=== PATIENT | female | born 1985 | race African-American/Black ===

== ENCOUNTER 2021-04-12 21:43 | Emergency (ER) | payer SELFPAY ==
--- NOTE | ~2021-04-12 | XR_ITS ---
EXAMINATION: XR foot LT min 3V EXAM DATE: 04/12/2021 22:12 INDICATION: Edema to great toe, cut cuticle, laceration to severe. TECHNIQUE: Left foot dorsoplantar, lateral and oblique projections obtained and reviewed. There is n o prior study for comparison. FINDINGS: Left metatarsal bones unremarkable. There are no bony erosions identified. There are n o acute fractures or dislocations identified. There is no subcutaneous gas. The soft tissue is unre markable. There are no radiopaque foreign bodies. IMPRESSION: No acute osseous findings. Reviewed, dictated and finalized at location A. IMPRESSION: No acute osseous findings.
[2021-04-12 21:47] VITALS: BP 149/96; PULSE 89; RESP 18; TEMP 37; O2SAT 100
[2021-04-12 22:05] LABS: Basophils Percent Auto 0.3 % (0.2-1.2); Eosinophils Percent Auto 0.3 % (0-4.4); Hematocrit 37.8 % (37.0-47.0); Hemoglobin 11.6 g/dL (12.0-15.0); Immature Granulocyte Absolute 0.02 K/mm3 (0.00-0.031); Immature Granulocyte Percent A 0.2 % (0-0.5); Lymphocytes Absolute Auto 1.96 K/mm3 (0.9-3.2); Lymphocytes Percent Auto 22.8 % (18.3-44.2); Mean Corpuscular HGB Conc 30.7 g/dl (32-36); Mean Corpuscular Hemoglobin 20.6 pg (26-34); Mean Corpuscular Volume 67.3 fl (80-100); Mean Platelet Volume 10.5 fl (7.4-10.4); Monocytes Absolute Auto 0.5 K/mm3 (0.1-0.6); Monocytes Percent Auto 5.7 % (2.6-8.5); Neutrophils Absolute Auto 6.1 K/mm3 (1.3-6.7); Neutrophils Percent Auto 70.7 % (45.5-73.1); Platelet Count Result 290 k/mm3 (150-375); Red Blood Count 5.62 M/mm3 (4.2-5.4); Red Cell Distribution Width 15.2 % (11.5-14.5); White Blood Count 8.6 K/mm3 (4.5-10.0)
[2021-04-12 22:16] LABS: Alanine Aminotransferase 18 U/L (4-35); Albumin Level 4.4 g/dL (3.5-5.1); Alkaline Phosphatase 53 U/L (38-126); Anion Gap 3 mmol/L (8-16); Aspartate Amino Transferase 32 U/L (14-36); Bilirubin,Total 0.2 mg/dL (0.2-1.3); Blood Urea Nitrogen 8 mg/dL (7-17); Carbon Dioxide 33 mmol/L (22-30); Chloride 103 mmol/L (98-107); Estimated CRCL calculation 126 ml/min; Estimated Glomerular Filt Rate > 60; Glucose 115 mg/dL (65-105); Potassium 3.9 mmol/L (3.4-5.0); Sodium 139 mmol/L (137-145)
--- NOTE | 2021-04-12 23:45 | ED.EXTPRO ---
HPI - Extremity Problem General Chief complaint: Extremity Problem,Nontraumatic Stated complaint: pain to left great toe Time Seen by Provider: 04/12/21 23:26 Source: patient Mode of arrival: ambulatory Limitations: no limitations History of Present Illness HPI Narrative: This is a 35-year-old female that presents the emergency department for pain to the left great toe present x2 days. Noticed redness and swelling to the area. Also has had abnormal drainage from the area. Reports she did receive a pedicure couple weeks ago. Denies fever. Related Data Allergies Allergy/AdvReac Type Severity Reaction Status Date / Time Penicillins Allergy Unknown Verified 08/30/16 11:13 sulfamethoxazole Allergy Unknown Verified 08/30/16 11:55 trimethoprim Allergy Unknown Verified 08/30/16 11:55 SHELLFISH Allergy Unknown Uncoded 08/30/16 11:13 Review of Systems Review of Systems: Narrative: CONSTITUTIONAL: Denies fever SKIN: Reports redness and swelling All systems reviewed & are unremarkable except as noted in HPI and below PMFSH Past Medical History Medical History (Updated 04/13/21 @ 01:43 by Susan Jovel PA-C) No active medical problems Social History Social History (Updated 04/12/21 @ 23:46 by Susan Jovel PA-C) Substance use: never Exam Narrative: Exam Narrative: GENERAL: Well-appearing, well-nourished, and in no acute distress. HEAD: Normocephalic, atraumatic. EYES: EOMI. EXTREMITIES: Normal range of motion. Mild edema and redness to the left great toe lateral nail fold, tender to palpation in the area SKIN: Warm, dry, no rash. NEURO: No focal deficits. Alert and oriented x3. PSYCH: Normal mood and affect Course Vital Signs Vital signs: Vital Signs Temperature 98.6 F 04/12/21 21:47 Pulse Rate 89 04/12/21 21:47 Respiratory Rate 18 04/12/21 21:47 Blood Pressure 149/96 H 04/12/21 21:47 Pulse Oximetry 100 04/12/21 21:47 Temperature 98.6 F 04/12/21 21:47 Pulse Rate 82 04/13/21 00:04 Respiratory Rate 17 04/13/21 00:04 Blood Pressure 170/90 H 04/13/21 00:04 Pulse Oximetry 100 04/13/21 00:04 MDM - Extremity (Nontraumatic) MDM Narrative Medical decision making narrative: Patient presents the emergency department for left great toe redness and swelling. Exam consistent with paronychia. This was drained in the ED. CBC is without leukocytosis. Patient is afebrile. Left foot x-ray is without acute findings. Patient instructed on warm soapy soaks and will be started on oral antibiotics. She is to follow-up with her primary care doctor. Will also be given podiatry if needed. She was given warnings to return to the ER Lab Data Attestation: I reviewed the patient's lab results. Result diagrams: 04/12/21 21:58 04/12/21 21:58 Labs: Lab Results 04/12/21 04/12/21 Range/Units 21:58 21:58 WBC 8.6 (4.5-10.0) K/mm3 RBC 5.62 H (4.2-5.4) M/mm3 Hgb 11.6 L (12.0-15.0) g/dL Hct 37.8 (37.0-47.0) % MCV 67.3 L (80-100) fl MCH 20.6 L (26-34) pg MCHC 30.7 L (32-36) g/dl RDW 15.2 H (11.5-14.5) % Plt Count 290 (150-375) k/mm3 MPV 10.5 H (7.4-10.4) fl Immature Gran % (Auto) 0.2 (0-0.5) % Neut % (Auto) 70.7 (45.5-73.1) % Lymph % (Auto) 22.8 (18.3-44.2) % [place] % (Auto) 5.7 (2.6-8.5) % Eos % (Auto) 0.3 (0-4.4) % Baso % (Auto) 0.3 (0.2-1.2) % Lymph # (Auto) 1.96 (0.9-3.2) K/mm3 [place] # (Auto) 0.5 (0.1-0.6) K/mm3 Eos # (Auto) 0.0 (0-0.3) K/mm3 Baso # (Auto) 0.0 (0.0-0.1) K/mm3 Abs Immat Gran (auto) 0.02 (0.00-0.031) K/mm3 Absolute Neuts (auto) 6.1 (1.3-6.7) K/mm3 Absolute Nucleated RBC 0.0 (0.0-0.012) K/mm3 Nucleated RBC % 0.0 (0.0-0.2) % Sodium 139 (137-145) mmol/L Potassium 3.9 (3.4-5.0) mmol/L Chloride 103 (98-107) mmol/L Carbon Dioxide 33 H (22-30) mmol/L Anion Gap 3 L (8-16) mmol/L BUN 8 (7-17) mg/dL Creatinine 0.70 (0.7-1.0) m
[2021-04-13 00:04] VITALS: BP 170/90; PULSE 82; RESP 17; O2SAT 100
[2021-04-13 02:01] VITALS: BP 141/81; PULSE 80; RESP 18; O2SAT 97
== END 2021-04-13 02:00 | disposition home or self-care (01) ==
PROVIDERS: Emergency Provider Emergency Medicine; PCP Family Medicine
DX: L03.032 Cellulitis of left toe (principal)
CPT/HCPCS: 36415; 73630; 80053; 85025; 99283

== ENCOUNTER 2023-06-30 03:47 | Emergency (ER) | payer BC, SELFPAY ==
[2023-06-30 03:50] VITALS: BP 153/110; PULSE 92; RESP 17; TEMP 36.2; O2SAT 100
--- NOTE | 2023-06-30 03:58 | PC.NURSE ---
Patient reports she had told a friend that she had thoughts of wanting to hurt herself and her friend called for help. Patient reports she was at work and the police showed up at her work and told her that she had to be taken to the ER and didn't have a choice. Patient denies actively trying to hurt herself and just reports thinking of driving her truck of a bridge tonight. She reports she didn't act on it at all and went to work instead.
--- NOTE | 2023-06-30 04:19 | ED.GENADULT ---
HPI - General Adult General Chief complaint: Psychiatric Symptoms <Matt Carter MD - Last Filed: 06/30/23 05:56> Stated complaint: to talk to someone brought in by PD <Matt Carter MD - Last Filed: 06/30/23 05:56> Time Seen by Provider: 06/30/23 04:15 <Matt Carter MD - Last Filed: 06/30/23 05:56> History of Present Illness HPI narrative: Patient 38-year-old female presents emerged department with chief complaint of suicidal ideation. Patient reports has been under a lot of stress and made some comments to one of her friends that she may drive her vehicle off a bridge. The patient states that at this exact point she is not actively suicidal and reports that her friend called the police and they brought her to the emergency department. <Matt Carter MD - Last Filed: 06/30/23 05:56> Related Data Allergies/adverse reactions: Allergies Allergy/AdvReac Type Severity Reaction Status Date / Time Penicillins Allergy Unknown Rash Verified 06/30/23 03:48 sulfamethoxazole Allergy Unknown Swelling Verified 06/30/23 03:48 of Lip/Tongue/Throat trimethoprim Allergy Unknown Swelling Verified 06/30/23 03:48 of Lip/Tongue/Throat SHELLFISH Allergy Unknown Swelling Uncoded 06/30/23 03:48 of Lip/Tongue/Throat <Matt Carter MD - Last Filed: 06/30/23 05:56> Review of Systems Review of Systems: A 10 system review of systems was completed on the patient and is negative except for what is stated in the HPI. Nursing and ancillary documentation was reviewed. <Matt Carter MD - Last Filed: 06/30/23 05:56> [facility] Past Medical History Medical History: Medical History No active medical problems <Matt Carter MD - Last Filed: 06/30/23 05:56> Social History Social History: Social History Substance use: never Substance use type: does not use <Matt Carter MD - Last Filed: 06/30/23 05:56> Comments History of lupus <Matt Carter MD - Last Filed: 06/30/23 05:56> Exam Narrative: GENERAL: Well-appearing, well-nourished, and in no acute distress. HEAD: Normocephalic, atraumatic. EYES: PERRLA and EOMI. ENT: Nares clear, no rhinorrhea or epistaxis. Mucous membranes moist. NECK: Supple. CHEST: Clear to auscultation. No respiratory distress. HEART: Regular rate and rhythm. No murmur heard. Normal peripheral pulses. ABDOMEN: Soft, nontender, nondistended, normal active bowel sounds. EXTREMITIES: Normal range of motion. No edema. SKIN: Warm, dry, no rash. NEURO: No focal deficits. Alert and oriented x3. PSYCH: Tearful mood and affect <Matt Carter MD - Last Filed: 06/30/23 05:56> Course Vital Signs Vital signs: Vital Signs Temperature 97.2 F L 06/30/23 03:50 Pulse Rate 92 06/30/23 03:50 Respiratory Rate 17 06/30/23 03:50 Blood Pressure 153/110 H 06/30/23 03:50 Pulse Oximetry 100 06/30/23 03:50 Oxygen Delivery Room Air 06/30/23 03:50 Temperature 97.2 F L 06/30/23 03:50 Pulse Rate 92 06/30/23 03:50 Respiratory Rate 17 06/30/23 03:50 Blood Pressure 153/110 H 06/30/23 03:50 Pulse Oximetry 100 06/30/23 03:50 Oxygen Delivery Room Air 06/30/23 03:50 <Matt Carter MD - Last Filed: 06/30/23 05:56> Vital Signs Temperature 97.2 F L 06/30/23 03:50 Pulse Rate 92 06/30/23 03:50 Respiratory Rate 17 06/30/23 03:50 Blood Pressure 153/110 H 06/30/23 03:50 Pulse Oximetry 100 06/30/23 03:50 Oxygen Delivery Room Air 06/30/23 03:50 Temperature 97.2 F L 06/30/23 03:50 Pulse Rate 92 06/30/23 03:50 Respiratory Rate 17 06/30/23 03:50 Blood Pressure 153/110 H 06/30/23 03:50 Pulse Oximetry 100 06/30/23 03:50 Oxygen Delivery Room
[2023-06-30 04:43] LABS: Basophils Percent Auto 0.5 % (0.2-1.2); Eosinophils Absolute Auto 0.1 K/mm3 (0-0.3); Hematocrit 38.9 % (37.0-47.0); Hemoglobin 12.4 g/dL (12.0-15.0); Immature Granulocyte Absolute 0.02 K/mm3 (0.00-0.031); Immature Granulocyte Percent A 0.3 % (0-0.5); Lymphocytes Absolute Auto 1.64 K/mm3 (0.9-3.2); Lymphocytes Percent Auto 27.7 % (18.3-44.2); Mean Corpuscular HGB Conc 31.9 g/dl (32-36); Mean Corpuscular Hemoglobin 20.7 pg (26-34); Mean Corpuscular Volume 65.1 fl (80-100); Mean Platelet Volume 10.6 fl (7.4-10.4); Monocytes Absolute Auto 0.5 K/mm3 (0.1-0.6); Monocytes Percent Auto 8.1 % (2.6-8.5); Neutrophils Absolute Auto 3.7 K/mm3 (1.3-6.7); Neutrophils Percent Auto 62.4 % (45.5-73.1); Platelet Count Result 254 k/mm3 (150-375); Red Blood Count 5.98 M/mm3 (4.2-5.4); Red Cell Distribution Width 16.7 % (11.5-14.5); White Blood Count 5.9 K/mm3 (4.5-10.0)
[2023-06-30 04:57] LABS: Alanine Aminotransferase 30 U/L (6-35); Albumin Level 4.7 g/dL (3.5-5.1); Alkaline Phosphatase 57 U/L (38-126); Anion Gap 10 mmol/L (8-16); Aspartate Amino Transferase 29 U/L (14-36); Bilirubin,Total 0.6 mg/dL (0.2-1.3); Blood Urea Nitrogen 7 mg/dL (7-17); Calcium 8.7 mg/dL (8.4-10.2); Carbon Dioxide 29 mmol/L (22-30); Chloride 98 mmol/L (98-107); Estimated CRCL calculation 113 ml/min; Estimated Glomerular Filt Rate > 60; Glucose 132 mg/dL (65-110); Potassium 2.6 mmol/L (3.4-5.0); Sodium 137 mmol/L (137-145)
[2023-06-30 05:01] LABS: Amphetamine Screen Urine Positive (Negative); Barbiturate Screen Urine Negative (Negative); Benzodiazepines Screen Urine Negative (Negative); Cannabinoid Screen Urine Negative (Negative); Cocaine Screen Urine Negative (Negative); Methadone Screen Urine Negative (Negative); Opiate Screen Urine Negative (Negative); Phencyclidine Screen Urine Negative (Negative)
[2023-06-30 05:04] LABS: Microcytosis 2+ (NORMAL); Platelet Estimate Adequate (Adequate); Schistocytes None Seen (NORMAL)
[2023-06-30 05:05] LABS: Ethanol < 10 mg/dL (<10)
[2023-06-30] MEDS: POTASSIUM CHLORIDE 20 MEQ ER TABLET 40 MEQ PO (05:05)
[2023-06-30 05:07] LABS: Appearance Urine Cloudy (Clear); Bacteria Urine 1+ /hpf; Bilirubin Urine 1+ (Negative); Blood Urine Negative (Negative); Color Urine Dark Yellow (Yellow); Glucose Urine UA Negative (Negative); Ketones Urine 2+ mg/dL (Negative); Leukocyte Esterase Ur Negative LEU/UL (Negative); Need Manual Microscopic Reviewed; Nitrate Urine Negative (Negative); Protein Urine 3+ mg/dL (Negative); Specific Grav Ur 1.029 (1.001-1.035); Squamous Epithelial Cell Urine Many /hpf (Few)
[2023-06-30 05:08] LABS: Add Urine Microscopic? YES
[2023-06-30 05:18] LABS: Influenza A QL RT-PCR Negative (Negative); Influenza B QL RT-PCR Negative (Negative); RSV RNA, RT-PCR Negative (Negative); SARS-CoV-2 RNA PCR Negative (Negative)
[2023-06-30 05:44] LABS: Acetaminophen < 10 ug/mL (10-30); Salicylate < 1.0 mg/dL (2-20)
--- NOTE | 2023-06-30 06:15 | PC.NURSE ---
Per EDP Dr. Carter patient is a moderate risk and no sitter is required.
--- NOTE | 2023-06-30 08:20 | PC.NURSE ---
crisis at bedside
== END 2023-06-30 10:05 | disposition home or self-care (01) ==
PROVIDERS: Emergency Medicine; Emergency Provider Emergency Medicine
DX: R45.851 Suicidal ideations (principal); F32.A Depression, unspecified; E87.6 Hypokalemia; Z20.822 Contact with and (suspected) exposure to COVID-19
CPT/HCPCS: 36415; 80053; 80307; 81001; 81025; 84443; 85025; 85055; 87086; 87088; 87637; 99284; A9270

== ENCOUNTER 2025-06-24 12:34 | Emergency (ER) | payer BC, SELFPAY ==
--- NOTE | ~2025-06-24 | XR_ITS ---
EXAMINATION: XR chest 2V 06/24/2025 13:42 INDICATION: Chest pain and cough. Weakness. PROCEDURE: 2 view chest COMPARISON: No prior studies for comparison. FINDINGS: The lungs are clear. The cardiomediastinal silhouette is within normal limits. There are no pleural effusions. There is no pneumothorax suspected. There are cholecystectomy clips. IMPRESSION: 1: NO ACUTE CARDIOPULMONARY DISEASE. Reviewed, dictated and finalized at location A.
--- OUTSIDE RECORDS SUMMARY | 2025-06-24 12:38 | XMS_ITS | Clinical Summary ---
Author Organization [facility] Address [address] [place] [id number] Care Team Providers Care Woods Overseer Name Role Phone Sena Mckenzie Pratik THORPE Primary Care Provider Allergies Active Allergy Reactions Criticality Noted Date Comments Penicillins Hives 10/29/2017 Shellfish-Derived Products Hives 8 Sulfa Antibiotics Anaphylaxis High 10/29/2017 Medications sucralfate (CARAFATE) 1 G tablet Take 1 tablet (1 g total) by mouth 4 (four) times daily. 120 tablet 02/04/2023 Active famotidine (PEPCID) 20 MG tablet Take 1 tablet (20 mg total) by mouth 2 (two) times daily. 60 tablet 02/04/2023 Active naproxen (NAPROSYN) 500 MG tablet Take 1 tablet (500 mg total) by mouth 2 (two) times daily as needed (Pain. Please take with meals). 60 tablet 02/04/2023 Active lidocaine 4 % patch Place 1 patch onto the skin daily. Remove & Discard patch within 12 hours or as directed by MD Fink patch 11/18/2023 Active Active Problems No known active problems Family History Medical History Relation Comments Cancer Father Diabetes Father Hypertension Mother Relation Status Comments Father Mother Social History Tobacco Use Types Packs/Day Years Used Date Smoking Tobacco: Never Smokeless Tobacco: Never Tobacco Cessation:Counseling Given: Not Answered Alcohol Use Standard Drinks/Week Comments No 0 (1 standard drink = 0.6 oz pur e alcohol) Comments No Sex and Gender Information Value Date Recorded Sex Assigned at Not on file Legal Sex Female 7:14 PM CDT Gender Identity Not on file Sexual Orientation Not on file Last Filed Vital Signs Vital Sign Reading Time Taken Comments Blood Pressure 135/92 09/10/2024 12:29 AM CDT Pulse 83 09/10/2024 12:26 AM CDT Temperature 36.4 C (97.6 F) 09/10/2024 12:26 AM CDT Respiratory Rate 18 09/10/2024 12:2 6 AM CDT Oxygen Saturation 100% 09/10/2024 12: 26 AM CDT Inhaled Oxygen Concentration - - Weight 107.5 kg (236 lb 15.9 oz) 2023 12:26 AM CDT Height 160 cm (5' 3) 09/10/2024 12:26 AM CDT Body Mass Index 41.98 09/10/2024 12:26 AM CDT Plan of Treatment Health Maintenance Due Date Last Done Comments Cervical Cancer Screening Pap Smear (Age 30 to 64) Every 3 Years 1987 Annual Physical 1990 Hepatitis C 2005 HPV Vaccines (1 - 3-dose SCDM series) 2014 Cervical Cancer Screening Pap with HPV Testing (Age 30 to 64) Every 5 Years 2017 Cervical Cancer Screening with HPV 2017 COVID-19 Vaccine ( season) 2024 09/14/2021, 08/24/2021 DTaP, Tdap and Td Vaccines (6 - Td or Tdap) 01/02/2031 01/02/2021, 11/03/2003, 09/13/1993, Additional history exists Hepatitis B Vaccines Completed 09/25/1999, 09/06/1998, 04/29/1997 Meningococcal B Vaccine Aged Out No l onger eligible based on patient's age to complete this topic Meningococcal Vaccine Aged Out No adriel ken eligible based on patient's age to complete this topic Pneumococcal Vaccine: Pediatrics (0 to 5 Years) and At-Risk Patients (6 to 49 Years) Aged Out No longer eligible based on patient's age to complete this topic RSV Immunizations Under 20 Months Aged Out No longer eligible based on patient's age to complete this topic Insurance [facility] [employer] Care Teams Woods Overseer Relationship Specialty Start Date End Date Sena Mckenzie FNP PCP - General NURSE PRACTITIONER 10/01/18
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
--- OUTSIDE RECORDS SUMMARY | 2025-06-24 12:38 | XMS_ITS | Referral Summary ---
Author Organization [facility] Healthcare Address [address] [place] [address] Care Team Providers Care Intel Analyst Name Role Phone Dona Kirby MD Primary Care Provider [phone]- [phone] Encounters Date Type Department Care Team Description 04/13/2025 1:53 PM CDT - 04/13/2025 3:46 PM CDT Emergency [address] [address] Dizziness (Primary Dx); Acute generalized body pain Discharge Disposition: Discharge to home or self care from Last 3 Months Allergies Active Allergy Reactions Criticality Noted Date Comments Penicillins Shrimp Unknown 05/16/2022 Sulfa Angioedema High 08/24/2024 Swollen lips and facial itching Medications albuterol HFA (PROVENTIL HFA,VENTOLIN HFA,PROAIR HFA) 90 mcg/actuation inhaler albuterol sulfate HFA 90 mcg/actuation aerosol inhaler Active beclomethasone dipropionate (QVAR REDIHALER) 80 mcg/actuation inhaler 2 puffs BID 1 Active Ozempic 2 mg/dose (8 mg/3 mL) pen injector injection INJECT 2 MG EVERY WEEK BY SUBCUTANEOUS ROUTE DIRECTED FOR 30 DAYS. 4 Active ketorolac (TORADOL) 10 mg tablet Take 1 tablet (10 mg total) by mouth every 6 (six) hours as needed for pain 20 tablet 5 Active Active Problems No known active problems Social History Tobacco Use Types Packs/Day Years Used Date Smoking Tobacco: Never Assessed Personal Safety Answer Date Recorded Have you ever been in or are you currently in a harmful physical or emotional relationship or is someone making you feel afraid or unsafe? 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 Gender Identity Not on file Sexual Orientation Not on file Last Filed Vital Signs Vital Sign Reading Time Taken Comments Blood Pressure 157/96 04/13/2025 1:53 PM CDT Pulse 76 04/13/2025 1:53 PM CDT Temperature 37 C (98.6 F) 04/13/2025 1:53 PM CDT Respiratory Rate 16 04/13/2025 1:53 PM CDT Oxygen Saturation 100% 04/13/2025 1:53 PM CDT Inhaled Oxygen Concentration - - Weight 112.7 kg (248 lb 7.3 oz) 04/13/2025 2:16 PM CDT Height 160 cm (5' 3) 07/30/2023 4:36 PM CDT Body Mass Index 44.01 07/30/2023 4:36 PM CDT Plan of Treatment Not on file Procedures Procedure Name Priority Date/Time Associated Diagnosis Comments POCT HCG, URINE STAT 04/13/2025 2:33 PM CDT URINALYSIS, MICROSCOPIC ONLY STAT 04/13/2025 2:28 PM CDT URINALYSIS AND REFLEX TO MICROSCOPIC AND CULTURE STAT 04/13/2025 2:28 PM CDT EGFR STAT 04/13/2025 2:26 PM CDT DIFFERENTIAL AUTO STAT 04/13/2025 2:2 6 PM CDT COMPREHENSIVE METABOLIC PANEL STAT 04/13/2025 2:26 PM CDT CBC WITH AUTO DIFFERENTIAL STAT 04/13/2025 2:26 PM CDT from Last 3 Months Results * POCT hCG, urine (04/13/2025 2:33 PM CDT) HCG, ur, POC Negative Negative Lot Number [id number] QC Backgroud Clear Acceptable QC Control Line Acceptable Urine 04/13/2025 2:33 PM CDT Radha FOWLER POINT OF CARE TEST ORDERAB LES Final Result * (ABNORMAL) Urinalysis reflex to microscopic and culture Urine (04/13/2025 2:28 PM CDT) Color, ur Yellow Yellow Clarity, ur Cloudy(A) Clear [facility] Specific gravity, ur 1.025 1.003 - 1.030 [facility] pH, urine 6.0 [facility] Comment: Interpretive Data U rine pH is affected by diet, medications, systemic acid-base disturbances, and renal tubular function. pH may affect urinary stone formation. For example, urine pH below 6.0 may help reduce the tendency for calcium phosphate stones and pH greater than 6.0 may reduce the tendency for uric acid stone formation. Source: [facility] Current Interpretive Data was last revised on 2017 Protein, ur ql Negative Negative [facility] Glucose, ur ql Negative Negative [facility] Ketones, ur Negative Negative [facility] Bilirubin, ur Negative Negative [facility] Blood, ur Negative Negative [facility] Urobilinogen, ur <2.0 <2.0 mg/dL [facility] Nitrite, ur Negative Negative [facility] Leukocyte esterase, ur 1+(A) Negative [facility] UA reflex comment Reflex to microscopic UA will be performed. [facility] Urine 04/13/2025 2:28 PM CDT 04/13/2025 2:33 PM CDT Radha FOWLER LAB MICROBIOLOGY - GENERAL ORDERABLES Final Result [facility] [address] [facility] [place] [address] * (ABNORMAL) Urinalysis, microscopic only (04/13/2025 2:28 PM CDT) WBC, ur 0-5 0 - 5 /HPF RBC, ur 3-5(A) 0 - 2 /HPF [facility] Epithelial cells, squamous, ur 11-20(A) 0 - 5 /HPF [facility] Comment:Suggestive of contam ination. Consider recollection by clean catch. Bacteria, ur Trace(A) [facility] Mucous, ur Present(A) [facility] Culture Reflex Comment Reflex conditions for urine culture (WBC >10) not met. [facility] Urine 04/13/2025 2:28 PM CDT 04/13/2025 2:33 PM CDT Radha FOWLER LAB URINE ORDERABLES Final Result Performing Organization Address [facility] Co de Phone Number [address] [employer] [place] [address] * eGFR (04/13/2025 2:26 PM CDT) eGFR >90 >=60 mL/min/1. 73 m2 Comment: Interpretive Data Reference Interval Normal >/= 90 mL/min/1.73m2 Mildly decreased* 60 - 89 mL/min/1.73m2 Mildly to moderately decreased 45 - 59 mL/min/1.73m2 Moderately to severely decreased 30 - 44 mL/min/1.73m2 Severely decreased 15 - 29 mL/min/1.73m2 Kidney Failure < 15 mL/min/1.73m2 *Relative to young adult level Estimated glomerular filtration rate is determined by the 2020 CKD-EPI equation recommended by the National Kidney Foundation (A Unifying Approach to GFR Estimation: Recommendations of the NKF-ASK Task Force on Reassessing the Inclusion of Race in Diagnosing Kidney Disease, JASN 2020). The CKD-EPI equation should not be used for patients with unstable renal function and has not been validated in children and those over 70. Current interpretive data was last reviewed 2021. Blood 04/13/2025 2:26 PM CDT 04/13/2025 2:33 PM CDT Radha FOWLER LAB BLOOD ORDERABLES Final Result Performing Organization Address City/[facility]/ZIP Co de Phone Number [address] [place] [address] * Differential, auto (04/13/2025 2:26 PM CDT) Pathologist [facility] Neutrophil abs 3.55 1.50 - 6.50 K/cumm Imm gran abs 0.01 0.00 - 0.10 K/cumm [facility] Lymphocyte abs 2.20 0.80 - 3.30 K/cumm [facility] Monocyte abs 0.47 0.20 - 0.80 K/cumm [facility] Eosinophil abs 0.14 0.00 - 0.50 K/cumm [facility] Basophil abs 0.03 0.00 - 0.10 K/cumm [facility] Neutrophil pct 55.4 % [facility] Comment: Interpretive Data Percent cell count reference ranges are not reported, since discordance with absolute values may lead to misinterpretation of CBC data. Current Interpretive Data was last revised on 2018. Imm gran pct 0.2 % [facility] Comment: Interpretive Data Percent cell count reference ranges are not reported, since discordance with absolute values may lead to misinterpretation of CBC data. Current Interpretive Data was last revised on 2018. Lymphocyte pct 34.4 % [facility] Comment: Interpretive Data Percent cell count reference ranges are not reported, since discordance with absolute values may lead to misinterpretation of CBC data. Current Interpretive Data was last revised on 2018. Monocyte pct 7.3 % [facility] Comment: Interpretive Data Percent cell count reference ranges are not reported, since discordance with absolute values may lead to misinterpretation of CBC data. Current Interpretive Data was last revised on 2018. Eosinophil pct 2.2 % [facility] Comment: Interpretive Data Percent cell count reference ranges are not reported, since discordance with absolute values may lead to misinterpretation of CBC data. Current Interpretive Data was last revised on 2018. Basophil pct 0.5 % [facility] Comment: Interpretive Data Percent cell count reference ranges are not reported, since discordance with absolute values may lead to misinterpretation of CBC data. Current Interpretive Data was last revised on 2018. Blood 04/13/2025 2:26 PM CDT 04/13/2025 2:33 PM CDT Radha FOWLER LAB BLOOD ORDERABLES Final Result Performing Organization Address City/[facility] Co de Phone Number CATHERINE [address] [address] * (ABNORMAL) CBC with auto differential (04/13/2025 2:26 PM CDT) [facility] [address] WBC 6.40 3.80 - 9.90 K/cumm Hgb 11.1(L) 11.9 - 15.5 g/dL [facility] Hct 35.1(L) 35.6 - 45.5 % [facility] Plt 253 150 - 400 K/cumm [facility] MPV 11.2 9.1 - 12.3 fL [facility] RBC 5.23(H) 3.90 - 5.20 M/cumm [facility] MCV 67.1(L) 81.3 - 96.4 fL [facility] MCH 21.2(L) 27.1 - 33.3 pg [facility] MCHC 31.6(L) 32.3 - 35.7 g/dL [facility] RDW CV 15.3(H) 11.1 - 14.9 % [facility] RDW SD 36.2 35.7 - 48.1 fL [facility] NRBC abs 0.00 0.00 - 0.01 K/cumm [facility] Blood 04/13/2025 2:26 PM CDT 04/13/2025 2:33 PM CDT Radha FOWLER LAB BLOOD ORDERABLES Final Result Performing Organization Address City/[facility]/ZIP Co de Phone Number CATHERINE [address] [place] [address] * Comprehensive metabolic panel (04/13/2025 2:26 PM CDT) [facility] [address] Sodium 142 135 - 145 mmol/L Potassium, pl 3.8 3.3 - 4.9 mmol/L [facility] Chloride 103 97 - 110 mmol/L [facility] CO2 28 22 - 32 mmol/L [facility] Anion gap 11 2 - 15 mmol/L [facility] BUN 6 6 - 25 mg/dL [facility] Creatinine 0.70 0.60 - 1.10 mg/dL [facility] Glucose 96 70 - 199 mg/dL [facility] Comment: Interpretive Data Fasting glucose >/= 126 mg/dl is diagnostic for diabetes. Fasting is defined as no caloric intake for at least 8 hours. Fasting glucose between 100 mg/dl to 125 mg/dl is diagnostic of prediabetes. In a patient with classic symptoms of hyperglycemia or hyperglycemic crisis, a random glucose >/= 200 mg/dl is diagnostic for diabetes. In the absence of unequivocal hyperglycemia, results should be confirmed by repeat testing. The classification and Diagnosis of Diabetes Diabetes Care 202; 46: S19-S40. Current interpretive data was last revised 2022. Calcium 8.9 8.5 - 10.3 mg/dL [facility] Bilirubin, total 0.2 0.1 - 1.2 mg/dL [facility] Protein, pl 8.1 6.5 - 8.5 g/dL [facility] Albumin 4.2 3.5 - 5.0 g/dL [facility] Alk phos 54 40 - 130 Units/L [facility] ALT 9 7 - 45 Units/L [facility] AST 18 10 - 45 Units/L [facility] Blood 04/13/2025 2:26 PM CDT 04/13/2025 2:33 PM CDT Radha FOWLER LAB BLOOD ORDERABLES Final Result Performing Organization Address City/State/[facility] Co de Phone Number [facility] [address] [facility] [place] [address] from Last 3 Months Insurance [employer] O[employer] J[place]ETH [place] [id number] Care Teams Intel Analyst Relationship Specialty Start Date End Date Dona Kirby MD PCP - General Family Medicine 05/27/21
--- OUTSIDE RECORDS SUMMARY | 2025-06-24 12:38 | XMS_ITS | Clinical Summary ---
Author Organization [facility] Healthcare Address [address] [place] [address] Care Team Providers Care Waiter/Waitress Tavern Name Role Phone Dona Kirby MD Primary Care Provider +1- [phone] Allergies Active Allergy Reactions Criticality Noted Date [...] Active Active Problems No known active problems Encounters Date Type Department Care Team Description 04/13/2025 1:53 PM CDT - 04/13/2025 3:46 PM CDT Emergency [address] [address] Dizziness (Primary Dx); Acute generalized body pain Discharge Disposition: Discharge to home or self care from Last 3 Months Social History Tobacco Use Types Packs/Day Years [...] on file 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 Gender Identity Not on file Sexual Orientation [...] 07/30/2023 4:36 PM CDT Plan of Treatment Health Maintenance Due Date Last Done Comments Cervical Cancer Screening 1987 Depression Screening 1987 Hepatitis C Screening 1987 Varicella Vaccines (1 of 2 - 13+ 2-dose series) 2000 Regular Well Visit/Exam 18-64 2005 Pneumococcal vaccine <65 (1 of 2 - PCV) 2006 HPV Vaccines (1 - 3-dose SCD M series) 2014 Influenza Vaccine (#1) 2025 09/01/2022 DTaP/Tdap/Td Vaccine (6 - Td or Tdap) 01/02/2031 01/02/2021, 11/03/2003, 09/13/1993, Additional history exists Hepatitis B Screening Completed 09/25/1999 , 09/06/1998, 04/29/1997 Procedures Procedure Name Priority Date/Time Associated Diagnosis [...] ur Yellow Yellow Clarity, ur Cloudy(A) Clear [facility] Specific gravity, ur 1.025 1.003 - 1.030 [facility] pH, urine 6.0 [facility] Comment: Interpretive Data U rine pH is affected by diet, medications, systemic acid-base disturbances, and renal tubular function. pH may affect urinary stone formation. For example, urine pH below 6.0 may help reduce the tendency for calcium phosphate stones and pH greater than 6.0 may reduce the tendency for uric acid stone formation. Source: [facility] [employer] Current Interpretive Data was last revised on 2017 Protein, ur ql Negative Negative [facility] Glucose, ur ql Negative Negative [facility] Ketones, ur Negative Negative [facility] Bilirubin, ur Negative Negative [facility] Blood, ur Negative Negative [facility] Urobilinogen, ur <2.0 <2.0 mg/dL [facility] Nitrite, ur Negative Negative [facility] Leukocyte esterase, ur 1+(A) Negative [facility] UA reflex comment Reflex to microscopic UA will be performed. [facility] Urine 04/13/2025 2:28 PM CDT 04/13/2025 2:33 PM CDT Radha FOWLER [facility] MICROBIOLOGY - GENERAL ORDERABLES Final Result Performing Organization Address [facility] de Phone Number [address] [address] * (ABNORMAL) Urinalysis, microscopic only (04/13/2025 2:28 PM CDT) WBC, ur 0-5 0 - 5 /HPF RBC, ur 3-5(A) 0 - 2 /HPF [facility] Epithelial cells, squamous, ur 11-20(A) 0 - 5 /HPF [facility] Comment:Suggestive of contam ination. Consider recollection by clean catch. Bacteria, ur Trace(A) [facility] Mucous, ur Present(A) [facility] Culture Reflex Comment Reflex conditions for urine culture (WBC >10) not met. [facility] Urine 04/13/2025 2:28 PM CDT 04/13/2025 2:33 PM CDT Radha FOWLER [facility] URINE ORDERABLES Final Result Performing Organization Address [facility] de Phone Number [address] [address] * eGFR (04/13/2025 2:26 PM CDT) eGFR [...] glomerular filtration rate is determined by the 2021 CKD-EPI equation recommended by the National Kidney Foundation (A Unifying Approach to GFR Estimation: Recommendations of the NKF-ASK Task Force on Reassessing the Inclusion of Race in Diagnosing Kidney Disease, JASN 202). The CKD-EPI equation should not be used for patients with unstable renal function and has not been validated in children and those over 70. Current interpretive data was last reviewed 2021. Blood 04/13/2025 2:26 PM CDT 04/13/2025 2:33 PM CDT Radha FOWLER LAB BLOOD ORDERABLES Final Result [facility] [address] [facility] Department [place] [address] * Differential, auto (04/13/2025 2:26 PM CDT) Neutrophil abs 3.55 1.50 - 6.50 K/cumm Imm gran abs 0.01 0.00 - 0.10 K/cumm [facility] Lymphocyte abs 2.20 0.80 - 3.30 K/cumm [facility] Monocyte abs 0.47 0.20 - 0.80 K/cumm [facility] Eosinophil abs 0.14 0.00 - 0.50 K/cumm [facility] Basophil abs 0.03 0.00 - 0.10 K/cumm [facility] Neutrophil pct 55.4 % [facility] Comment: Interpretive Data Percent cell count reference ranges are not reported, since discordance with absolute values may lead to misinterpretation of CBC data. Current Interpretive Data was last revised on 2018. Imm gran pct 0.2 % [facility] Comment: Interpretive Data Percent cell count reference ranges are not reported, since discordance with absolute values may lead to misinterpretation of CBC data. Current Interpretive Data was last revised on 2018. Lymphocyte pct 34.4 % [facility] Comment: Interpretive Data Percent cell count reference ranges are not reported, since discordance with absolute values may lead to misinterpretation of CBC data. Current Interpretive Data was last revised on 2018. Monocyte pct 7.3 % [facility] Comment: Interpretive Data Percent cell count reference ranges are not reported, since discordance with absolute values may lead to misinterpretation of CBC data. Current Interpretive Data was last revised on 2018. Eosinophil pct 2.2 % [facility] Comment: Interpretive Data Percent cell count reference ranges are not reported, since discordance with absolute values may lead to misinterpretation of CBC data. Current Interpretive Data was last revised on 2018. Basophil pct 0.5 % [facility] Comment: Interpretive Data Percent cell count reference ranges are not reported, since discordance with absolute values may lead to misinterpretation of CBC data. Current Interpretive Data was last revised on 2018. Blood 04/13/2025 2:26 PM CDT 04/13/2025 2:33 PM CDT Radha FOWLER LAB BLOOD ORDERABLES Final Result [facility] [address] [facility] Department [place] [address] * (ABNORMAL) CBC with auto differential (04/13/2025 2:26 PM CDT) WBC 6.40 3.80 - 9.90 K/cumm Hgb 11.1(L) 11.9 - 15.5 g/dL [facility] Hct 35.1(L) 35.6 - 45.5 % [facility] Plt 253 150 - 400 K/cumm [facility] MPV 11.2 9.1 - 12.3 fL [facility] RBC 5.23(H) 3.90 - 5.20 M/cumm [facility] MCV 67.1(L) 81.3 - 96.4 fL [facility] MCH 21.2(L) 27.1 - 33.3 pg [facility] MCHC 31.6(L) 32.3 - 35.7 g/dL [facility] RDW CV 15.3(H) 11.1 - 14.9 % [facility] RDW SD 36.2 35.7 - 48.1 fL [facility] NRBC abs 0.00 0.00 - 0.01 K/cumm [facility] Blood 04/13/2025 2:26 PM CDT 04/13/2025 2:33 PM CDT Radha FOWLER LAB BLOOD ORDERABLES Final Result [facility] [address] [facility] Department [place] [address] * Comprehensive metabolic panel (04/13/2025 2:26 PM CDT) Pathologist [facility] Sodium 142 135 - 145 mmol/L Potassium, pl 3.8 3.3 - 4.9 mmol/L [facility] Chloride 103 97 - 110 mmol/L [facility] CO2 28 22 - 32 mmol/L [facility] Anion gap 11 2 - 15 mmol/L [facility] BUN 6 6 - 25 mg/dL [facility] Creatinine 0.70 0.60 - 1.10 mg/dL [facility] Glucose 96 70 - 199 mg/dL [facility] Comment: Interpretive Data Fasting glucose >/= [...] classification and Diagnosis of Diabetes Diabetes Care 2021; 46: S19-S40. Current interpretive data was last revised 2022. Calcium 8.9 8.5 - 10.3 mg/dL [facility] Bilirubin, total 0.2 0.1 - 1.2 mg/dL [facility] Protein, pl 8.1 6.5 - 8.5 g/dL [facility] Albumin 4.2 3.5 - 5.0 g/dL [facility] Alk phos 54 40 - 130 Units/L [facility] ALT 9 7 - 45 Units/L [facility] AST 18 10 - 45 Units/L [facility] Blood 04/13/2025 2:2 6 PM CDT 04/13/2025 2:33 PM CDT Radha FOWLER LAB BLOOD ORDERABLES Final Result [facility] [address] 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
--- OUTSIDE RECORDS SUMMARY | 2025-06-24 12:38 | XMS_ITS | Data Portability ---
Author Organization [facility] Anastacia [facility] [place] Address [address] [address] Care Team Providers Care Cook'S Assistant Name Role Phone JAMESJOSSE GONGORA Primary Care Provider [phone] Assessment Encounter Date Assessment Date Assessment LastModified by Organization Details LastModified Time 07/02/2024 07/02/2024 Sections of the HPI, exam and assessment completed by JANETH Kuhn student and have been reviewed by me. I agree with the exam findings, assessment and plan except where specifically documented or amended. -Sultana Villasenor, [facility], CHASE barrios Not available 07/02/2024 10:03:19 Plan of Treatment Reminders Order Date Submit Date Provider Last Modified By Organization Details Last Modified Time Details Appointments None recorded. Lab bacterial vaginosis score, PAULINE+probe, vaginal fluid (OBS) 2023 024 PRIMO [facility], [address], [place], [address], 4 14:12:32 urinalysis, dipstick 2023 024 PRIMO In-Office Order, Internal Use Only DO Not Attach Compendium DO Not Attach Compendium, Do Not Delete/merge, [id number] 4 09:51:07 HbA1c (hemoglobin A1c), blood 2023 024 [email or web address] In-Office Order, Internal Use Only DO Not Attach Compendium DO Not Attach Compendium, Do Not Delete/merge, [id number] 4 13:13:24 urinalysis, dipstick 2022 023 [email or web address] In-Office Order, Internal Use Only DO Not Attach Compendium DO Not Attach Compendium, Do Not Delete/merge, [id number] 09:16:04 CMP, serum or plasma 2022 023 [facility], [address], [place], [address], 3 01:07:17 lipid panel, serum 2022 023 [facility], [address], [place], [address], 3 01:07:17 CBC w/ auto diff 2022 023 [facility], [address], [place], [address], 3 01:07:18 TSH + free T4, serum 2022 023 [facility], [address], [place], [address], 3 08:28:07 HbA1c (hemoglobin A1c), blood 2022 023 [email or web address] In-Office Order, Internal Use Only DO Not Attach Compendium DO Not Attach Compendium, Do Not Delete/merge, [id number] 3 16:34:18 Referral paleobotanist referral - DO NOT REFER TO [facility] 2023 024 PRIMO Boyd, [address], [address], [place], [address], 4 11:52:[address] referral 2022 023 cinthia Dinh MD, [address], [address], [place], [address], 4 16:20:51 Procedures None recorded. Surgeries None recorded. Imaging None recorded. Medication Orders Linzess 145 mcg capsule 2023 024 [facility], [address] [place], [address], 4 09:55:50 fluconazole [address] [id number], [address], [place], [address], 4 09:56:27 buspirone 5 mg tablet 2023 024 [id number] [address], [place], [address], 4 10:23:40 metformin [address] [id number], [address], [place], [address], 3 16:20:41 Ozempic 0.25 mg or 0.5 mg (2 mg/1.5 mL) subcutaneou s pen injector 2022 023 [email or web address] [id number], [address], [place], [address], 4 10:09:27 capsaicin 0.1 % topical cream 2022 024 [facility] [id number] [place], [address], 4 15:36:51 Patient TargetsNo targets recorded. Patient Instructions Encounter Date Encounter Id Patient Instructions Last Modified By Organization Details Last Modified Time 06/14/2023 [id number] A healthy lifestyle: care instructions denis Not available 06/14/2023 13:12:24 11/05/2023 [id number] A healthy lifestyle: care instructions [email or web address] Not available 11/05/2023 16:10:52 Reason for Referral Tube Cutter Referral for H erpes zoster Referring Physician: Sultana Villasenor [facility], Encounter Date: 06/14/2023 Tester Sound Referral for Onyc homycosis of toenails DO NOT REFER TO [facility] Referring Physician: Sultana Villasenor [facility], Encounter Date: 12/27/2023 Results Created Date Observation Date Name Description Value Unit Range Abnormal Flag Note LastModifiedBy Organization Detail LastModifiedTime 11/05/2011/07/2023 LIPID PANEL WITH LDL/H DL RATIO cholesterol, total 180 mg/dL 100-19 9 Not Available [facility] [address] [place] [address], [address], 11/07/2023 01:07:17 11/05/2011/07/2023 LIPID PANEL WITH LDL/H DL RATIO triglyceride s 68 mg/dL 0-149 Not Available [facility] [address] [place], [address], 11/07/2023 01:07:17 11/05/2011/07/2023 LIPID PANEL WITH LDL/H DL RATIO HDL cholesterol 61 mg/dL 40-999 Not Available [facility] Department [address] [place], [address], 11/07/2023 01:07:17 11/05/20 23 11/07/2023 LIPID PANEL WITH LDL/H DL RATIO VLDL cholesterol brodie 14 mg/dL 5-40 Not Available [facility] [address] [place], [address], 11/07/2023 01:07:17 11/05/2011/07/2023 LIPID PANEL WITH LDL/H DL RATIO LDL chol calc ([facility]) 115 mg/dL 0-99 above high normal Not Available [facility] [address] [place], [address], 11/07/2023 01:07:17 11/05/20 23 11/07/2023 LIPID PANEL WITH LDL/H DL RATIO LDL/HDL ratio 1.9 0-3.2 Not Available [facility] [address] [place], [address], 11/07/2023 01:07:17 11/05/20 23 11/07/2023 COMP. METAB OLIC PANEL (14) glucose 116 mg/dL 70-99 above high normal Not Available [facility] [address] [place], [address], 11/07/2023 01:07:17 11/05/20 23 11/07/2023 COMP. METAB OLIC PANEL (14) BUN 8 mg/dL 6-20 Not Available [facility] Department [address] [place] [address], [address], 11/07/2023 01:07:17 11/05/20 23 11/07/2023 COMP. METAB OLIC PANEL (14) creatinine 0.67 mg/dL 0.76-1 .27 below low normal Not Available [facility] Department [address] [place] [address], [address], 11/07/2023 01:07:17 11/05/20 23 11/07/2023 COMP. METAB OLIC PANEL (14) eGFR 116 >=60 Units for eGFR value s are mL/mi n/1.7 3 The eGFR Calcu latio n has not been valid ated for patie nts under the age of 18. If test resul ts are displ ayed for a patie nt under the age of 18, disre nicolasa that value . Not Available [facility] [address] [place], [address], 11/07/2023 01:07:17 11/05/20 23 11/07/2023 COMP. METAB OLIC PANEL (14) BUN/creatini ne ratio 12 9-23 Not Available [facility] [address] [place] [address], [address], 11/07/2023 01:07:17 11/05/20 23 11/07/2023 COMP. METAB OLIC PANEL (14) sodium 142 mmol/ L 134-14 4 Not Available [facility] Department [address] [place], [address], 11/07/2023 01:07:17 11/05/20 23 11/07/2023 COMP. METAB OLIC PANEL (14) potassium 4.1 mmol/ L 3.5-5. 2 Not Available [facility] [address] [place], [address], 11/07/2023 01:07:17 11/05/20 23 11/07/2023 COMP. METAB OLIC PANEL (14) chloride 103 mmol/ L 96-106 Not Available [facility] [address] [place] [address], [address], 11/07/2023 01:07:17 11/05/20 23 11/07/2023 COMP. METAB OLIC PANEL (14) carbon dioxide, total 28 mmol/ L 20-29 Not Available [facility] [address] [place], [address], 11/07/2023 01:07:17 11/05/20 23 11/07/2023 COMP. METAB OLIC PANEL (14) calcium 9.5 mg/dL 8.7-10 .2 Not Available [facility] Department [address] [place] [address], [address], 11/07/2023 01:07:17 11/05/20 23 11/07/2023 COMP. METAB OLIC PANEL (14) protein, total 7.5 g/dL 6.0-8. 5 Not Available [facility] Department [address] [place], [address], 11/07/2023 01:07:17 11/05/20 23 11/07/2023 COMP. METAB OLIC PANEL (14) albumin 4.4 g/dL 3.9-4. 9 Not Available [facility] [address] [place], [address], 11/07/2023 01:07:17 11/05/20 23 11/07/2023 COMP. METAB OLIC PANEL (14) globulin, total 3.1 g/dL 1.5-4. 5 Not Available [facility] [address] [place], [address], 11/07/2023 01:07:17 11/05/20 23 11/07/2023 COMP. METAB OLIC PANEL (14) A/G ratio 1.4 1.2-2. 2 Not Available [facility] [address] [place], [address], 11/07/2023 01:07:17 11/05/20 23 11/07/2023 COMP. METAB OLIC PANEL (14) bilirubin, total 0.3 mg/dL 0.0-1. 2 Not Available [facility] [address] [place], [address], 11/07/2023 01:07:17 11/05/20 23 11/07/2023 COMP. METAB OLIC PANEL (14) alkaline phosphatase 66 IU/L 44-121 Not Available [facility] Department [address] [place], [address], 11/07/2023 01:07:17 11/05/20 23 11/07/2023 COMP. METAB OLIC PANEL (14) AST (SGOT) 14 IU/L 0-40 Not Available [facility] [address] [place], [address], 11/07/2023 01:07:17 11/05/20 23 11/07/2023 COMP. METAB OLIC PANEL (14) ALT (SGPT) 11 IU/L 0-32 Not Available [facility] [address] [place] [address], [address], 11/07/2023 01:07:17 11/05/20 23 11/07/2023 CBC WITH DIFFE RENTI AL/PL ATELE T WBC 6.1 x10e3 /uL 3.4-10 .8 Not Available [facility] [address] [place], [address], 11/07/2023 01:07:18 11/05/20 23 11/07/2023 CBC WITH DIFFE RENTI AL/PL ATELE T RBC 5.79 x10e6 /uL 3.77-5 .28 above high normal Not Available [facility] [address] [place], [address], 11/07/2023 01:07:18 11/05/2011/07/2023 CBC WITH DIFFE RENTI AL/PL ATELE T hemoglobin 11.7 g/dL 11.1-1 5.9 Not Available [facility] [address] [place], [address], 11/07/2023 01:07:18 11/05/2011/07/2023 CBC WITH DIFFE RENTI AL/PL ATELE T hematocrit 40.2 % 34.0-4 6.6 Not Available [facility] [address] [place], [address], 11/07/2023 01:07:18 11/05/20 23 11/07/2023 CBC WITH DIFFE RENTI AL/PL ATELE T MCV 69 fL 79-97 below low normal Not Available [facility] [address] [place], [address], 11/07/2023 01:07:18 11/05/20 23 11/07/2023 CBC WITH DIFFE RENTI AL/PL ATELE T MCH 20.2 pg 26.6-3 3.0 below low normal Not Available [facility] [address] [place], [address], 11/07/2023 01:07:18 11/05/20 23 11/07/2023 CBC WITH DIFFE RENTI AL/PL ATELE T MCHC 29.1 g/dL 31.5-3 5.7 below low normal Not Available [facility] [address] [place], [address], 11/07/2023 01:07:18 11/05/20 23 11/07/2023 CBC WITH DIFFE RENTI AL/PL ATELE T RDW 16.3 % 11.5-1 4.5 above high normal Not Available [facility] [address] [place], [address], 11/07/2023 01:07:18 11/05/2011/07/2023 CBC WITH DIFFE RENTI AL/PL ATELE T platelets 335 x10e3 /uL 150-45 0 Not Available [facility] [address] [place], [address], 11/07/2023 01:07:18 11/05/20 23 11/07/2023 CBC WITH DIFFE RENTI AL/PL ATELE T neutrophils 57 % notest b. Not Available [facility] [address] [place], [address], 11/07/2023 01:07:18 11/05/20 23 11/07/2023 CBC WITH DIFFE RENTI AL/PL ATELE T lymphs 33 % notest b. Not Available [facility] [address] [place], [address], 11/07/2023 01:07:18 11/05/20 23 11/07/2023 CBC WITH DIFFE RENTI AL/PL ATELE T monocytes 8 % notest b. Not Available [facility] [address] [place], [address], 11/07/2023 01:07:18 11/05/20 23 11/07/2023 CBC WITH DIFFE RENTI AL/PL ATELE T eos 2 % notest b. Not Available [facility] [address] [place], [address], 11/07/2023 01:07:18 11/05/20 23 11/07/2023 CBC WITH DIFFE RENTI AL/PL ATELE T basos 0 % notest b. Not Available [facility] [address] [place], [address], 11/07/2023 01:07:18 11/05/20 23 11/07/2023 CBC WITH DIFFE RENTI AL/PL ATELE T neutrophils (absolute) 3.5 x10e3 /uL 1.4-7. 0 Not Available [facility] [address] [place], [address], 11/07/2023 01:07:18 11/05/20 23 11/07/2023 CBC WITH DIFFE RENTI AL/PL ATELE T lymphs (absolute) 2.0 x10e3 /uL 0.7-3. 1 Not Available [facility] [address] [place], [address], 11/07/2023 01:07:18 11/05/20 23 11/07/2023 CBC WITH DIFFE RENTI AL/PL ATELE T monocytes(ab solute) 0.5 x10e3 /uL 0.1-0. 9 Not Available [facility] [address] [place], [address], 11/07/2023 01:07:18 11/05/20 23 11/07/2023 CBC WITH DIFFE RENTI AL/PL ATELE T eos (absolute) 0.1 x10e3 /uL 0.0-0. 4 Not Available [facility] [address] [place], [address], 11/07/2023 01:07:18 11/05/20 23 11/07/2023 CBC WITH DIFFE RENTI AL/PL ATELE T baso (absolute) 0.0 x10e3 /uL 0.0-0. 2 Not Available [facility] [address] [place] [address], [address], 11/07/2023 01:07:18 11/05/20 23 11/07/2023 CBC WITH DIFFE RENTI AL/PL ATELE T immature granulocytes 0.2 % notest b. Not Available [facility] [address] [place], [address], 11/07/2023 01:07:18 11/05/20 23 11/07/2023 CBC WITH DIFFE RENTI AL/PL ATELE T immature grans (abs) 0.0 x10e3 /uL 0.0-0. 1 Not Available [facility] [address] [place], [address], 11/07/2023 01:07:18 11/05/20 23 11/07/2023 CBC WITH DIFFE RENTI AL/PL ATELE T NRBC 0 % 0-0 Not Available [facility] [address] [place], [address], 11/07/2023 01:07:18 11/05/20 23 11/07/2023 TSH+F REE T4 TSH 1.080 uIU/m L 0.450- 4.500 Not Available [facility] ([facility]) [address] [place], [address], 11/07/2023 08:28:07 11/05/20 23 11/07/2023 TSH+F REE T4 T4,free(dire ct) 1.30 NG/dL 0.82-1 .77 Not Available [facility] ([facility]) [address] [facility], [place], [address], 11/07/2023 08:28:07 11/05/20 23 11/05/2023 HbA1c (hemo globi n A1c), blood HbA1c 6.2% Not Available In-Office Order Internal Use Only DO Not Attach Compendium DO Not Attach Compendium, Do Not Delete/merge, [id number] 11/05/2023 16:03:44 11/06/2011/06/2023 urina lysis , dipst ick Leukocytes Negati ve Not Available In-Office Order Internal Use Only DO Not Attach Compendium DO Not Attach Compendium, Do Not Delete/merge, [id number] 11/06/2023 08:41:51 11/06/20 23 11/06/2023 urina lysis , dipst ick Nitrite negati ve Not Available In-Office Order Internal Use Only DO Not Attach Compendium DO Not Attach Compendium, Do Not Delete/merge, [id number] 11/06/2023 08:41:51 11/06/20 23 11/06/2023 urina lysis , dipst ick Urobilinogen .2 Not Available In-Of fice Order Internal Use Only DO Not Attach Compendium DO Not Attach Compendium, Do Not Delete/merge, [id number] 11/06/2023 08:41:51 11/06/20 23 11/06/2023 urina lysis , dipst ick Protein Negati ve Not Available In-Office Order Internal Use Only DO Not Attach Compendium DO Not Attach Compendium, Do Not Delete/merge, [id number] 11/06/2023 08:41:51 11/06/20 23 11/06/2023 urina lysis , dipst ick pH 6.0 Not Available In-Office Order Internal Use Only DO Not Attach Compendium DO Not Attach Compendium, Do Not Delete/merge, [id number] 11/06/2023 08:41:51 11/06/20 23 11/06/2023 urina lysis , dipst ick Blood Negati ve Not Available In-Office Order Internal Use Only DO Not Attach Compendium DO Not Attach Compendium, Do Not Delete/merge, [id number] 11/06/2023 08:41:51 11/06/20 23 11/06/2023 urina lysis , dipst ick Specific [place] 1.030 Not Available In-Off ice Order Internal Use Only DO Not Attach Compendium DO Not Attach Compendium, Do Not Delete/merge, [id number] 11/06/2023 08:41:51 11/06/20 23 11/06/2023 urina lysis , dipst ick Ketone Negati ve Not Available In-Office Order Internal Use Only DO Not Attach Compendium DO Not Attach Compendium, Do Not Delete/merge, [id number] 11/06/2023 08:41:51 11/06/20 23 11/06/2023 urina lysis , dipst ick Bilirubin Negati ve Not Available In-Office Order Internal Use Only DO Not Attach Compendium DO Not Attach Compendium, Do Not Delete/merge, [id number] 11/06/2023 08:41:51 11/06/20 23 11/06/2023 urina lysis , dipst ick Glucose Negati ve Not Available In-Office Order Internal Use Only DO Not Attach Compendium DO Not Attach Compendium, Do Not Delete/merge, [id number] 11/06/2023 08:41:51 11/06/20 23 11/06/2023 urina lysis , dipst ick Appearance Cloudy Not Available In-Offi ce Order Internal Use Only DO Not Attach Compendium DO Not Attach Compendium, Do Not Delete/merge, [id number] 11/06/2023 08:41:51 11/06/20 23 11/06/2023 urina lysis , dipst ick Color Red Not Available In-Office Order Internal Use Only DO Not Attach Compendium DO Not Attach Compendium, Do Not Delete/merge, [id number] 11/06/2023 08:41:51 05/27/20 24 05/27/2024 HbA1c (hemo globi n A1c), blood HbA1c 5.7% Not Available In-Office Order Internal Use Only DO Not Attach Compendium DO Not Attach Compendium, Do Not Delete/merge, [id number] 05/27/2024 12:15:48 07/02/20 24 07/05/2024 NUSWA B VG+, HSV hsv 1 PAULINE NEGATI VE negati ve Not Available [facility] ([facility]) [address] [facility], [place], [address], 07/07/2024 14:12:32 07/02/20 24 07/05/2024 NUSWA B VG+, HSV hsv 2 PAULINE NEGATI VE negati ve Not Available [facility] ([facility]) [address] [facility], [place], [address], 07/07/2024 14:12:32 07/02/20 24 07/07/2024 NUSWA B VG+, HSV atopobium vaginae MODERA TE - 1 score Not Available [facility] ([facility]) [address] [facility], [place], [address], 07/07/2024 14:12:32 07/02/20 24 07/07/2024 NUA B VG+, HSV bvab 2 LOW - 0 score Not Available [facility] ([facility]) [address] [facility], [place], [address], 07/07/2024 14:12:32 07/02/20 24 07/07/2024 NUA B VG+, HSV megasphaera 1 HIGH - 2 score abnormal Calcu late total score by radha g the 3 indiv idual bacte rial vagin osis (BV) marke r score s toget her. Total score is inter prete d as follo ws: Total score 0-1: Indic ates the absen ce of BV. Total score 2: Indet ermin ate for BV. Addit ional clini brodie data shoul d be evalu ated to estab darrell a diagn osis. Total score 3-6: Indic ates the prese nce of BV. Not Available [facility] ([facility]) [address] [facility], [place], [address], 07/07/2024 14:12:32 07/02/20 24 07/07/2024 NUA B VG+, HSV karolina albicans, PAULINE NEGATI VE negati ve Not Available [facility] ([facility]) [address] [facility], [place], [address], 07/07/2024 14:12:32 07/02/20 24 07/07/2024 NUA B VG+, HSV karolina glabrata, PAULINE NEGATI VE negati ve Not Available [facility] ([facility]) [address] [facility], [place], [address], 07/07/2024 14:12:32 07/02/20 24 07/07/2024 NUSWA B VG+, HSV trich vag by PAULINE NEGATI VE negati ve Not Available [facility] ([facility]) [address] [facility], [place], [address], 07/07/2024 14:12:32 07/02/20 24 07/07/2024 NUSWA B VG+, HSV chlamydia trachomatis, PAULINE NEGATI VE negati ve Not Available [facility] ([facility]) [address] [facility], [place], [address], 07/07/2024 14:12:32 07/02/20 24 07/07/2024 NUA B VG+, HSV neisseria gonorrhoeae, PAULINE NEGATI VE negati ve Not Available [facility] ([facility]) [address] [facility], [place], [address], 07/07/2024 14:12:32 07/02/20 24 07/02/2024 urina lysis , dipst ick Leukocytes Negati ve Not Available In-Office Order Internal Use Only DO Not Attach Compendium DO Not Attach Compendium, Do Not Delete/merge, 07/02/2024 09:46:02 07/02/20 24 07/02/2024 urina lysis , dipst ick Nitrite negati ve Not Available In-Office Order Internal Use Only DO Not Attach Compendium DO Not Attach Compendium, Do Not Delete/merge, 07/02/2024 09:46:02 07/02/2007/02/2024 urina lysis , dipst ick Urobilinogen 2 Not Available In-Of fice Order Internal Use Only DO Not Attach Compendium DO Not Attach Compendium, Do Not Delete/merge, 07/02/2024 09:46:02 07/02/20 24 07/02/2024 urina lysis , dipst ick Protein Trace Not Available In-Office Order Internal Use Only DO Not Attach Compendium DO Not Attach Compendium, Do Not Delete/merge, 07/02/2024 09:46:02 07/02/20 24 07/02/2024 urina lysis , dipst ick pH 6.5 Not Available In-Office Order Internal Use Only DO Not Attach Compendium DO Not Attach Compendium, Do Not Delete/merge, 07/02/2024 09:46:02 07/02/20 24 07/02/2024 urina lysis , dipst ick Blood Non-He molyze d: Trace Not Available In-Office Order Internal Use Only DO Not Attach Compendium DO Not Attach Compendium, Do Not Delete/merge, [id number] 07/02/2024 09:46:02 07/02/20 24 07/02/2024 urina lysis , dipst ick Specific [place] 1.015 Not Available In-Off ice Order Internal Use Only DO Not Attach Compendium DO Not Attach Compendium, Do Not Delete/merge, 07/02/2024 09:46:02 07/02/20 24 07/02/2024 urina lysis , dipst ick Ketone Small Not Available In-Office Order Internal Use Only DO Not Attach Compendium DO Not Attach Compendium, Do Not Delete/merge, 07/02/2024 09:46:02 07/02/20 24 07/02/2024 urina lysis , dipst ick Bilirubin Modera te Not Available In-Office Order Internal Use Only DO Not Attach Compendium DO Not Attach Compendium, Do Not Delete/merge, 07/02/2024 09:46:02 07/02/20 24 07/02/2024 urina lysis , dipst ick Glucose Negati ve Not Available In-Office Order Internal Use Only DO Not Attach Compendium DO Not Attach Compendium, Do Not Delete/merge, 07/02/2024 09:46:02 07/02/20 24 07/02/2024 urina lysis , dipst ick Appearance Clear Not Available In-Offi ce Order Internal Use Only DO Not Attach Compendium DO Not Attach Compendium, Do Not Delete/merge, 07/02/2024 09:46:02 07/02/20 24 07/02/2024 urina lysis , dipst ick Color Yellow Not Available In-Office Order Internal Use Only DO Not Attach Compendium DO Not Attach Compendium, Do Not Delete/merge, [id number] 07/02/2024 09:46:02 Result Notes None recorded. Problems Name Problem SNOMED Code Status Onset Date Resolution Date Notes Provider Name and Address Organization Details Recorded Time Moderate persistent asthma 089332383 Active 2016 BOO Mckenzie NP Attn: Sirena vic,[address] [facility], [place], [address], [place] [facility] 7 15:29:51 Thoracic back pain 059868774 Active 2016 BOO Mckenzie NP Attn: Sirena vic,[address] [facility], [place], [address], [place] [facility] 7 10:17:15 Diabetes mellitus 11354866 Active 2016 BOO Mckenzie NP Attn: Sirena vic,[address] [facility], [place], [address], [place] [facility] 7 10:17:16 Obesity 149669215 Active 2016 BOO Mckenzie NP Attn: Sirena vic,[address] [facility], [place], [address], [place] [facility] 7 10:17:18 Asthma 732257976 Active 2020 JANETH SHAH Attn: Sirena vic,[address] [facility], [place], [address], [place] [facility] 4 10:14:29 Type 2 diabetes mellitus 80057720 Active 2021 JANETH SHAH Attn: Rainayakelin ho,[address] [facility], [place], [address], [place] [facility] 2 10:06:33 History of attempted suicide 777316749 Active 2023 JANETH SHAH Attn: Sirena vic,[address] [facility], [place], [address], [place] [facility] 4 15:36:30 Essential hypertension 79486520 Active 2023 JAENTH SHAH Attn: Sirena ho,[address] [facility], [place], [address], [place] - [facility] 4 15:36:37 Mixed anxiety and depressive disorder 734057040 Active 2023 JANETH SHAH Attn: Sirena ho,[address] [facility], [place], [address], [place] - [facility] 4 12:31:04 Problem Notes None recorded. Procedures Surgical History Date Name Laterality Status Provider Name and Address Organization Details Recorded Time 12/02/19 10 Cholecystectomy completed Sun Galicia [place] - [facility] 01/02/2021 11:23:03 Tubal Ligation completed Talya skelton CMA [place] - [facility] 02/15/2017 16:04:21 Imaging Results None recorded. Procedure Notes None recorded. Medical Equipment None Reported. Allergies Allergen ID Allergen Name Allergen Category Reaction Reaction Severity Criticality Documentation Date Start Date Code Code System Note Provider Name and Address Organization Details Recorded Time [id number] Substance with sulfonami de structure and antibacte rial mechanism of action (substanc e) medicatio n Not available Not available Not available 07/03/2018 73362 8003 SNOMED BOO Mckenzie NP Attn: Sirena ho,[address] [facility], [place], [address], [place] - [facility] 8 14:28:36 94414 shrimp allergeni c extract food anaphylax is Not available Not available 02/15/2017 52811 2 RxNorm Talya Santoro CMA null, [place] - [facility] 7 16:14:59 47226 Product containin g penicilli n (product) medicatio n hives Not available Not available 02/15/2017 [id number] SNOMED Talya Santoro [employer] null, [place] - [facility] 7 16:15:15 Medications Name Sig Start Date Stop Date Status Note LastModified by Organization Details LastModified Time pain relief lidocaine 4% patch 6s UNWRAP AND APPLY 1 PATCH TO SKIN DAILY NEEDED FOR PAIN 10/02 completed Not Available Not Available Not Available cyclobenzap rine 10 mg tablet Take 1 tablet 3 times a day by oral route as needed for 30 days. 07/03 completed Not Available Not Available Not Available buspirone 5 mg tablet TAKE 1 TABLET BY MOUTH TWICE A DAY DIRECTED FOR 30 DAYS, FOR ANXIETY. active Not Available Not Available No t Available metformin 500 mg tablet TAKE 1 TABLET BY MOUTH TWICE A DAY active Not Available Not Available No t Available Qvar 80 mcg/actuati on Metered Aerosol oral inhaler INHALE 2 PUFF(S) TWICE A DAY BY INHALATIO N ROUTE. 07/03 completed Not Available Not Available Not Available prednisone 10 mg tablet PLEASE SEE ATTACHED FOR DETAILED DIRECTION S 10/02 completed Not Available Not Available Not Available doxycycline hyclate 100 mg capsule TAKE 1 CAPSULE BY MOUTH 2 TIMES DAILY FOR 7 DAYS TAKE WITH FOOD. DO NOT TAKE WITH MILK OR DAIRY. 06/14 completed Not Available Not Available Not Available ipratropium 0.5 mg-albutero l 3 mg (2.5 mg base)/3 mL nebulizatio n soln Inhale 3 mL by nebulizat ion route as directed. 02/22 completed Not Available Not Available Not Available clindamycin HCl 300 mg capsule TAKE ONE CAPSULE BY MOUTH EVERY 6 HOURS 08/08 completed Not Available Not Available Not Available albuterol sulfate 2.5 mg/3 mL (0.083 %) solution for nebulizatio n Inhale 3 mL every 4-6 hours by nebulizat ion route as needed. 10/02 completed Not Available Not Available Not Available azithromyci n 250 mg tablet TAKE 2 TABLETS (500 MG) BY ORAL ROUTE ONCE DAILY FOR 1 DAY THEN 1 TABLET (250 MG) BY ORAL ROUTE ONCE DAILY FOR 4 DAYS 05/06 completed Not Available Not Available Not Available ibuprofen 800 mg tablet TAKE 1 TABLET BY MOUTH 3 TIMES A DAY NEEDED 10/03 completed Not Available Not Available Not Available fluconazole 150 mg tablet TAKE 1 TABLET BY MOUTH ONCE FOR 1 DAY, REPEAT IN 3 DAYS active Not Available Not Available No t Available chlorzoxazo ne 500 mg tablet TAKE 1 TABLET BY MOUTH 3 TIMES A DAY NEEDED FOR MUSCLE SPASMS/BA CK SPASMS 06/21 completed Not Available Not Available Not Available valacyclovi r 1 gram tablet TAKE 1 TABLET BY MOUTH 2 TIMES DAILY X 14 DAYS 10/02 completed Not Available Not Available Not Available hydrocodone 5 mg-acetamin ophen 325 mg tablet 06/17 completed Not Available Not Available Not Available meloxicam 15 mg tablet Take 1 tablet every day by oral route. 01/02 completed Not Available Not Available Not Available Medrol (Sonu) 4 mg tablets in a dose pack Take 1 dose pk by oral route as directed. 01/02 completed Not Available Not Available Not Available prednisone 20 mg tablet TAKE 2 TABLETS BY MOUTH EVERY DAY FOR 5 DAYS 05/27 completed Not Available Not Available Not Available Tubersol 5 tub. unit/0.1 mL intradermal injection solution Inject 0.1 mL by intraderm al route. 02/02 completed Not Available Not Available Not Available phentermine 15 mg capsule Take 1 capsule every day by oral route in the morning. 01/02 completed Not Available Not Available Not Available lysine 1,000 mg tablet Take 1 tablet every day by oral route as directed for 30 days. 12/28 completed OTC Not Available Not Available Not Available metronidazo le 500 mg tablet Take 1 tablet twice a day by oral route with meal(s) for 7 days. active Not Available Not Available No t Available levofloxaci n 250 mg tablet 02/15 completed Not Available Not Available Not Available tramadol 50 mg tablet TAKE 1 TABLET BY MOUTH EVERY 4 TO 6 HOURS NEEDED FOR PAIN 03/14 completed Not Available Not Available Not Available terbinafine HCl 250 mg tablet Take 1 tablet every day by oral route. 01/02 completed Not Available Not Available Not Available amitriptyli ne 25 mg tablet Take 1 tablet every day by oral route at bedtime for 30 days. 11/06 completed Not Available Not Available Not Available prednisolon e acetate 1 % eye drops,suspe nsion 02/15 completed Not Available Not Available Not Available gentamicin 0.3 % eye drops 02/15 completed Not Available Not Available Not Available cephalexin 500 mg capsule TAKE 1 CAPSULE BY MOUTH TWICE A DAY FOR 7 DAYS 07/02 completed Not Available Not Available Not Available naproxen sodium 550 mg tablet Take 1 tablet twice a day by oral route as needed for 14 days. 06/17 completed Not Available Not Available Not Available ferrous sulfate 325 mg (65 mg iron) tablet Take 1 tablet twice a day by oral route for 30 days. 10/02 completed OTC Not Available Not Available Not Available tobramycin 0.3 % eye drops 02/15 completed Not Available Not Available Not Available Qvar 40 mcg/actuati on Metered Aerosol oral inhaler Inhale 2 puffs twice a day by inhalatio n route. 06/21 completed Not Available Not Available Not Available Advair Diskus 250 mcg-50 mcg/dose powder for inhalation Inhale 2 puffs twice a day by inhalatio n route for 30 days. 03/01 completed Not Available Not Available Not Available orphenadrin e citrate ER 100 mg tablet,exte nded release Take 1 tablet twice a day by oral route as needed. 11/06 completed Not Available Not Available Not Available fluoxetine 10 mg capsule TAKE 1 CAPSULE BY MOUTH EVERY DAY 12/28 completed Not Available Not Available Not Available gabapentin 300 mg capsule TAKE 1 CAPSULE BY MOUTH THREE TIMES A DAY NEEDED FOR 14 DAYS 10/02 completed Not Available Not Available Not Available omeprazole 20 mg capsule,del ayed release TAKE 1 CAPSULE(S ) EVERY DAY BY ORAL ROUTE BEFORE MEALS FOR 30 DAYS. 01/02 completed Not Available Not Available Not Available Banophen 25 mg capsule 07/03 completed Not Available Not Available Not Available diclofenac sodium 75 mg tablet,alisha yed release TAKE 1 TABLET BY MOUTH WITH MEALS 2 TIMES DAILY NEEDED FOR PAIN 10/02 completed Not Available Not Available Not Available hydrocortis one 2.5 % topical cream 07/03 completed Not Available Not Available Not Available hydrochloro thiazide 25 mg tablet TAKE 1 TABLET BY MOUTH EVERY DAY IN THE MORNING active Not Available Not Available No t Available diclofenac sodium 50 mg tablet,alisha yed release 07/03 completed Not Available Not Available Not Available ibuprofen 600 mg tablet TAKE 1 TABLET BY MOUTH EVERY 6 HOURS NEEDED active Not Available Not Available No t Available polyethylen e glycol 3350 17 gram/dose oral powder Take 17 g every day by oral route as needed. 01/02 completed Not Available Not Available Not Available albuterol sulfate HFA 90 mcg/actuati on aerosol inhaler 10/02 completed Not Available Not Available Not Available Vitamin D2 1,250 mcg (50,000 unit) capsule Take 1 capsule every week by oral route with meals for 90 days. active Not Available Not Available No t Available hydrocortis one 2.5 % topical ointment APPLY A THIN LAYER TO THE AFFECTED AREA(S) BY TOPICAL ROUTE 2 TIMES PER DAY FOR 7 DAYS 12/28 completed Not Available Not Available Not Available hydroxyzine HCl 10 mg tablet TAKE 1 TABLET BY MOUTH TWICE A DAY NEEDED 12/28 completed Not Available Not Available Not Available ondansetron 4 mg disintegrat ing tablet TAKE 1 TABLET BY MOUTH FOUR TIMES A DAY NEEDED active Not Available Not Available No t Available fluticasone propionate 50 mcg/actuati on nasal spray,suspe nsion 11/06 completed Not Available Not Available Not Available tobramycin 0.3 %-dexametha sone 0.1 % eye drops,suspe nsion 02/15 completed Not Available Not Available Not Available nitrofurant oin monohydrate /macrocryst als 100 mg capsule Take 1 capsule twice a day by oral route with meals for 7 days. 07/31 completed Not Available Not Available Not Available capsaicin 0.1 % topical cream APPLY 1 APPLICATI ON TWICE A DAY TO CHEST x14 DAYS, DO NOT USE ON OPEN WOUNDS 12/28 completed Not Available Not Available Not Available prednisone 08/08 completed Not Available Not Available Not Available hydrochloro thiazide 12.5 mg tablet TAKE 1 TABLET BY MOUTH EVERY DAY FOR 30 DAYS 10/03 completed Not Available Not Available Not Available diclofenac 1 % topical gel APPLY 2 GRAMS TOPICALLY TO THE AFFECTED AREA FOUR TIMES DAILY FOR 10 DAYS 06/21 completed Not Available Not Available Not Available Linzess 145 mcg capsule TAKE 1 CAPSULE EVERY DAY BY ORAL ROUTE FOR 30 DAYS. 2023 active Not Available Not Available Not Avai lable True Metrix Glucose Test Strip Take 2 strips every day by [employer]. route for 90 days. 2020 active Not Available Not Available Not Avai lable Qvar RediHaler 80 mcg/actuati on HFA breath activated aerosol 2 puffs BID 2020 active Not Available Not Available Not Avai lable Qvar RediHaler 40 mcg/actuati on HFA breath activated aerosol 07/03 completed Not Available Not Available Not Available Ozempic 0.25 mg or 0.5 mg (2 mg/1.5 mL) subcutaneou s pen injector Inject 0.25 mg every week by subcutane ous route as directed for 30 days. 12/27 completed Not Available Not Available Not Available Ozempic 1 mg/dose (4 mg/3 mL) subcutaneou s pen injector INJECT 1 MG SUBCUTANE OUSLY WEEKLY DIRECTED 05/12 completed Not Available Not Available Not Available Ozempic 2 mg/dose (8 mg/3 mL) subcutaneou s pen injector Inject 2 mg every week by subcutane ous route as directed for 30 days. 2024 active Not Available Not Available Not Avai lable Ozempic 0.25 mg or 0.5 mg (2 mg/3 mL) subcutaneou s pen injector INJECT 0.5 MG SUBCUTANE OUSLY WEEKLY DIRECTED 02/17 completed Not Available Not Available Not Available Vitals Date Recorded Respiratory rate Systolic And Diastolic Provider Name and Address Organization Details Last Updated DateTime 12/27/2023 18 /min 120/86 mm[Hg] JANETH SHAH Attn: Accounting[address] [place], [address], [place] - [facility] 12/27/2023 10:18:40 Date Recorded Body height Body mass index (BMI) Body weight Oxygen saturation Oxygen saturation in Arterial blood by Pulse oximetry Heart rate Systolic And Diastolic Provider Name and Address Organization Details Last Updated DateTime 4 160.02 cm 44.3 kg/m2 124039. 09 g 98 % 98 % 92 /min 140/92 mm[Hg] Samreen Reese [place] - [facility] 4 09:48:45 Date Recorded Body height Body mass index (BMI) Body weight Oxygen saturation Oxygen saturation in Arterial blood by Pulse oximetry Heart rate Respiratory rate Systolic And Diastolic Provider Name and Address Organization Details Last Updated DateTime 4 160.02 cm 43.1 kg/m2 037689. 75 g 100 % 100 % 85 /min 16 /min 138/84 mm[Hg] Jeannette Miner MA [facility] 4 12:12:39 Date Recorded Body height Body mass index (BMI) Body weight Oxygen saturation Oxygen saturation in Arterial blood by Pulse oximetry Heart rate Respiratory rate Systolic And Diastolic Provider Name and Address Organization Details Last Updated DateTime 3 160.02 cm 45 kg/m2 153079. 16 g 98 % 98 % 80 /min 16 /min 126/84 mm[Hg] Cassie Thronton MA [facility] 3 12:38:43 Date Recorded Respiratory rate Systolic And Diastolic Provider Name and Address Organization Details Last Updated DateTime 07/02/2024 18 /min 130/80 mm[Hg] JANETH SHAH Attn: Accounting[address] [place], [address], [facility] 07/02/2024 09:56:42 Date Recorded Body height Body mass index (BMI) Body weight Oxygen saturation Oxygen saturation in Arterial blood by Pulse oximetry Heart rate Systolic And Diastolic Provider Name and Address Organization Details Last Updated DateTime 4 160.02 cm 42.1 kg/m2 160452. 83 g 98 % 98 % 88 /min 143/93 mm[Hg] Mary Ellen oMntes MA [facility] 4 09:22:56 Date Recorded Body height Body mass index (BMI) Body weight Oxygen saturation Oxygen saturation in Arterial blood by Pulse oximetry Heart rate Respiratory rate Body temperature Systolic And Diastolic Provider Name and Address Organization Details Last Updated DateTime 3 160.02 cm 45.4 kg/m2 108512. 05 g 98 % 98 % 77 /min 16 /min 98.5 [degF] 126/82 mm[Hg] Talya Santoro CMA [facility] 3 16:03:05 Social History Question Answer Notes LastModified by Organizat ion Details LastModified Time Tobacco Smoking Status Never Smoker Talya Yvan, [employer] null, [place] - [facility] 02/15/2017 16:07:36 Do You Have An Advance Directive? No Information not available 02/15/2017 What Is Your Level Of Caffeine Consumption? None Information not available 02/15/2017 How Much Tobacco Do You Chew? None Information not available 01/02/2021 What Type Of Diet Are You Following? REGULAR Information not available 02/15/2017 Which Illicit Or Recreational Drugs Have You Used? None Information not available 02/15/2017 Education 12 Information no t available 02/15/2017 Are There Any Guns Present In Your Home? No Information not available 02/15/2017 Hard Of Hearing Or Deaf In One Or Both Ears? No Information not available 02/15/2017 Legally Blind In One Or Both Eyes? No Information no t available 02/15/2017 Live Alone Or With Others? With Others Information not available 01/02/2021 What Was The Date Of Your Most Recent Tobacco Screening? 07/02/2024 [email or web address] Information not available 07/02/2024 How Many Children Do You Have? 2 Information not available 02/15/2017 Do You Use Protection During Sex? Always Information not available 02/15/2017 Seat Belts Used Routinely Yes Information not available 02/15/2017 Are You Sexually Active? Yes Information not available 02/15/2017 Smoke Alarm In Home Yes Information not available 02/15/2017 At What Age Did You Start Smoking Tobacco? 0 N/a Information not available 01/02/2021 Are You Passively Exposed To Smoke? No Information no t available 01/02/2021 How Much Tobacco Do You Smoke? No Information not available 2020 General Stress Level High Information not available 02/15/2017 Do You Use Sunscreen Routinely? No Information not available 02/15/2017 Has Tobacco Cessation Counseling Been Provided? No Information not available 02/02/2021 On What Date Was Tobacco Cessation Counseling Provided? 05/27/2024 [email or web address] Information not available 05/27/2024 How Many Years Have You Smoked Tobacco? 0 Information not available 01/02/2021 Sex: Female Functional Status Question Answer Note LastModified by Organizat ion Details LastModified Time Do you use any illicit or recreational drugs? No Information not available 02/02/2021 Do you or have you ever used any other forms of tobacco or nicotine? No Information not available 02/02/2021 What is your level of alcohol consumption? None Information not available 02/15/2017 Do you or have you ever used smokeless tobacco? Never used smokeless tobacco Information not available 2020 Are you currently employed? 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 Never used electronic cigarettes Information not available 2020 What is your exercise level? Occasional Information not available 02/15/2017 Mental Status None recorded. Family History Relationship Description Onset Age of this Age Resolved Age Notes LastModified by Organization Details LastModified Time Father Asthma [email or web address] Not available 0 02/15/2017 16:05:23 Father Diabetes mellitus [email or web address] Not available 2016 16:06:03 Father Hypertensive disorder [email or web address] Not available 2016 16:06:21 Father Cholesterol/ high density lipoprotein ratio above reference range [email or web address] Not available 2016 16:07:19 Brother Asthma thulsema Not available 02/15/2017 16:05:23 Mother Family history of cancer of colon thulsema Not available 2016 16:05:48 Mother Hypertensive disorder thulsema Not available 2016 16:06:21 Medical History Condition Response Coronary Artery Disease N Other N High Blood Pressure N Atrial Fibrillation N Thyroid Problems N Kidney or Bladder Problems N GI Problems N Depression Y COPD N Blood Clots N Skin Problems N Eating Disorder N Anemia Y Heart Attack (ID) N Anxiety Disorder N Diabetes N Muscle, Joint, or Bone Problems N Seizures/Epilepsy N Acid Reflux (GERD) Y Cancer N Stroke N Asthma Y Allergies Y ADHD N Substance Abuse N High Cholesterol N Hepatitis N Liver Disease N Schizophrenia N Headaches N Heart Failure N Osteoporosis N Gynecological History Statement/Question Response Date of Last Mammogram Flow Heavy Date of LMP 06/07/2024 Duration of Flow (days) 6 Age at Menarche 15 Current Control Method None Age at First Child 23 If Post Menopausal, Age at Menopause Frequency of Cycle (Q days) 28 Menses Monthly Y Date of Last Pap Smear LMP Approximate Obstetrics History GPAL:G 2 P 1 1 0 2 Type Value Multiple Births 0 Full Term 1 Induced 0 Spontaneous 0 Premature 1 Living 2 Ectopics 0 Total 2 Immunizations Vaccine Type Date Status Note Provider Nacho skelton and Address Organization Details Recorded Time influenza, unspecified formulation 09/01/2022 completed Talya Santoro CMA null, [place] - [facility] 10/02/2022 10:12:18 Tdap 01/02/2021 completed Sun Galicia MA null, [place] - [facility] 01/02/2021 13:11:13 Past Encounters Encounter ID Performer Location Encounter Start Date Encounter Closed Date Diagnosis/Indication Diagnosis SNOMED-CT Code Diagnosis ICD10 Code Diagnosis Note [id number] BOO Mckenzie NP [facility] [address] [place] [address] 02/15/2017 15:35:45 02/18/2017 14:46:49 Obesity 063099878 E66.9 Obtain labs as ordered. F/u in 2 weeks Asthma 034367689 J45.90 9 Refill advair at this time. Acute thor acic back pain 514773762 M54.6 Start naproxen, muscle relaxer as prescribed . Rest. Ice. Heat. Stretching . Referral made to PT. F/u in 2 weeks for re-check or sooner if needed. Pain of wrist region 566 97941 M25.531 Rest. Elevate. Ice. Continue to wear brace prn. Referral made to PT. F/u in 2 weeks [id number] BOO Mckenzie NP [facility] [address] [place] [address] 03/01/2017 14:59:24 03/04/2017 09:35:09 Moderate persistent asthma 256795767 J45.40 Start QVAR as directed. F/u 3 months Diabetes mellitus 445694 09 E11.9 Elevated HgA1C. Discussed diabetic diet and exercise. Will repeat labs in 3 months. Start medicine at that time if HgA1C not decreasing . Pt aware. Constipation 09464522 K5 9.00 Start miralax as directed. [id number] BOO Mckenzie NP [facility] [address] [place] [address] 06/17/2017 10:40:32 06/17/2017 15:12:59 Moderate persistent asthma 991406732 J45.40 Increase QVAR dosage as directed. F/u 1 month. Albuterol prn Diabetes mellitus 896653 09 E11.9 Repeat HgA1C today. Continue diabetic diet. Constipation 65258886 K5 9.00 Continue miralax as directed. Gastroesop hageal reflux disease 241229349 K21.9 Start omeprazole as directed. Headache 47562340 R51 Start amitriptyl ine as directed. Discussed proper diet, exercise, sleep hygiene. Depressive disorder 3548 8657 F32.9 Start amitriptyl ine as directed. Discussed proper diet, exercise and sleep hygiene. Thoracic back pain 06142 8004 M54.6 Continue muscle relaxers and exercises prn. [id number] BOO Mckenzie NP [facility] [address] [place] [address] 10/11/2017 12:37:35 10/15/2017 15:37:09 Obesity 952908911 E66.9 Start phentermin e. Discussed risk factors. Continue diet and exercise. F/u 1 month. Gynecologi c examination 35127020 Z01.419 Pap and nuswab obtained. Depressive disorder 3548 9007 F32.9 Start counseling . F/u 1 month [id number] BOO Mckenzie NP [facility] [address] [place] [address] 11/06/2017 13:58:41 11/06/2017 17:14:56 Thoracic back pain 709384211 M54.6 Discussed how weight loss can help relieve continued back pain. Flexeril, NSAIDs, tylenol prn. Rest. Start PT. Diabetes mellitus 176170 09 E11.9 Repeat HgA1C today. Continue diabetic diet and weight loss Obesity 946855646 E66.9 Patient interested in having weight loss surgery. Refer to bariatrics today [id number] BOO Mckenzie NP [facility] [address] [place] [address] 07/03/2018 13:47:31 07/07/2018 12:26:18 Acute urinary tract infection 253559386 N39.0 -Urine dipstick with leukocytes , culture sent-Start macrobid-S tart diflucan-I ncrease water intake-F/u prn Prediabetes 146465191 R7 3.03 -Check HgA1C and CMP Body mass index 30+ - obesity 698350874 Z68.43 -Discussed that the medication will only help while taking it and may cause rebound weight gain.-Also discussed in detail about possible side effects (chest pain, palpitatio ns). Pt is aware and agreeable- Diet and exercise [id number] BOO Mckenzie NP [facility] [address] [facility] [place] [address] 10/15/2018 14:51:33 10/17/2018 10:13:18 Anemia 495755675 D64.9 -Continue iron supplement -Obtain CBC in 2 weeks Upper resp iratory infection 92711549 J06.9 -Duoneb tx this visit-Star t oral antibiotic -Start oral steroids-V entolin prn-Renew QVAR [id number] Dona Kirby MD [facility] [address] [place] [address] 04/17/2019 16:48:02 04/29/2019 08:55:04 Excessive and frequent menstruation 255416938 N92.1 Onycholysis 60470785 L60 .1 Diabetes mellitus 555063 09 E11.9 [id number] Dona Kirby MD [facility] [address] [facility] [place] [address] 05/06/2019 17:03:43 05/18/2019 08:44:11 Type 2 diabetes mellitus 77940399 E11.65 Onychomyco sis of toenails 089562588 B35.1 [id number] Dona Kirby MD [facility] [address] [facility] [place] [address] 2020 09:43:42 06/27/2020 09:34:14 Chronic constipation 512662745 K59.09 increase fiber and liquid intake to help make bowel movement easier to pass. Avulsion i njury of fingernail 782938885 S61.309D [id number] Dona Kirby MD [facility] [address] [place] [address] 01/02/2021 08:09:57 01/12/2021 10:22:45 Upper respiratory infection 75466418 J06.9 Administra tion of diphtheria, pertussis, and tetanus vaccine 403469839 Z23 Myalgia/my ositis - multiple 367194040 M79.10 Vitamin D deficiency 347 51395 E55.9 Exposure t o communicable disease 077439208 Z20.9 Tuberculos is screening 481530490 Z11.7 [id number] Dona Kirby MD [facility] [address] [place] [address] 02/02/2021 08:00:55 02/06/2021 11:37:52 Chronic musculoskeletal pain 845862356 M79.10 pain in arms and legs all the time. Did not improve with prednisone and ibuprofen 800 mg tid. Type 2 lesly betes mellitus 67975400 E11.65 extremity pain could be related to peripheral diabetic neuropathy Recurrent hematuria 2818 35379 N02.9 Fatigue 64367704 R53.83 [id number] Tremaine Gooden MD [facility] [address] [address] 02/22/2021 12:00:48 02/22/2021 14:27:54 Blood in urine 40312371 R31.9 Nocturia 154654966 R35.1 Left flank pain 43709872 9 R10.9 [id number] JANETH COX [facility] [address] [place] [address] 08/08/2021 12:34:21 08/14/2021 13:31:59 Edema of lower extremity 798691004 R60.0 Patient went to [facility] for swelling in her legs. They discharged on stable condition and asked her to f/u. will request records. She states swelling is almost daily and mostly around her ankles. This is worse towards the end of her day (she works nights). Patient also notes she sleeps on 3 pillows to breathe better and can climb one flight of stairs with rest at the top. She has occasional sob that she attributes to her asthma. SOB > year. She takes breathing treatments but does not always help. She has ran out of her asthma medication and using her daughters. She had one hospital visit for asthma in May. - plan to start hcz once labs reviewed Tachycardia 3522035 R00. 0 tachycardi a at 104 on exam today. Patient states she in anxious. Upper resp iratory infection 86751532 J06.9 this is supposed to be asthma Systemic l upus erythematosus 80330868 M32.9 Patient with CHRISTIANE+, Sjorgens ANTI ss- B (1.1) In January. [facility] but states they never called her. On ROS patient is + for fatigue, multiple joint pain, butterfly rash on face. Will obtain CHRISTIANE to monitor any new + and send to rheum again. She is waiting for insurance to kick in. She applied to state aid back in December and still waiting. Vitamin D deficiency 347 43207 E55.9 vitamin D < 5. She states she needs refill on vitamin D. Type 2 lesly betes mellitus [id number] E11.9 Patient diagnosed with DM2 back in 2017. Last A1C 2019 of 6.9. - check sugars daily; goal fasting <130 and 1-2 hours after meal <180. call office if sugars falling under 70. Patient aware of hypoglycem ia symptoms.- discussed diet: avoid sugars, pasta, tortillas, bread, rice, potatoes- Exercise 30 min 5x week- diabetic eye exam- foot exam at next visit At [facility] risk of sexually transmitted infection 294632462 Z20.2 Patient with episode of irregular period last three weeks. Will r/o STD. Denies discharge, pelvic pain, foul smell, rash. Anemia [id number] D64.9 2019 show iron deficient anemia. Will obtain labs to monitor. Morbid obesity 972489266 E66.01 BMI 52.3, not wnl Patient states she had lost >20 lbs working out and eating healthy but depression got worse and she stopped taking care of herself. She does not want to start medication for depression at this time until her labs come back. Depressive disorder 9708 9007 F32.9 Patient with increased crying episodes, low mood, irritabili ty, changes in sleep, changes in appetite > 2 months. Patient wants to see lab work before starting treatment. We did discuss sertraline as an option or another SSRI. Patient willing to try it. She is set up on portal and is to message me within the month or f/u. She is worries about her lack of insurance at this time. - advised counseling -Patient was educated on his prescribed medication s, rationale for medication s, dosing indication s, adverse reactions, black box warning, dosing indication s, SE (e.g., decreased libido, weight gain, gynecomast ia, and galactorrh ea) and the risks and benefits. -Call center with questions/ concerns. Go to ER or call 911 for crisis (e.g., suicidal behaviors, suicidal ideations, intent or plan emerge). Additional ly, patient has suicide hotline #. - f/u one month - call with questions Asthma [phone] J45.90 9 medication s sent in under resp infection by accident. Patient had hospital visit in May for exacerbati on. F/U one month or sooner if using rescue > 2x per week. Orthopnea [id number] R06.0 1 Iron defic iency anemia 40911528 D50.9 [id number] JNAETH COX [facility] [address] [place] [address] 03/14/2022 10:27:34 03/15/2022 12:00:20 Type 2 diabetes mellitus 05074127 E11.9 Patient diagnosed with DM2 back in 2017. Last A1C 2019 of 6.9. - check sugars daily; goal fasting <130 and 1-2 hours after meal <180. call office if sugars falling under 70. Patient aware of hypoglycem ia symptoms.- discussed diet: avoid sugars, pasta, tortillas, bread, rice, potatoes- Exercise 30 min 5x week- diabetic eye exam- foot exam at next visit Edema of l ower extremity 832083370 R60.0 refill - plan to start hcz once labs reviewed Chronic constipation 236 254142 K59.09 refill Morbid obesity 905965357 E66.01 BMI 47.8, not wnl. Patient states she had lost >20 lbs working out and eating healthy but depression got worse and she stopped taking care of herself. She does not want to start medication for depression at this time until her labs come back. Depressive disorder 2161 5702 F32.9 Patient with increased crying episodes, low mood, irritabili ty, changes in sleep, changes in appetite > 2 months.I. Patient willing to try prozac. - advised counseling -Patient was educated on his prescribed medication s, rationale for medication s, dosing indication s, adverse reactions, black box warning, dosing indication s, SE (e.g., decreased libido, weight gain, gynecomast ia, and galactorrh ea) and the risks and benefits.- Call center with questions/ concerns. Go to ER or call 911 for crisis (e.g., suicidal behaviors, suicidal ideations, intent or plan emerge). Additional ly, patient has suicide hotline #[phone].- f/u one month- call with questions Diarrhea 10790310 R19.7 diarrhea with eating only. If she does not eat her stomach feels fine. denies stomach pain, bloody stools, mucus in stool, rashes. [id number] Stuart crawford MD [facility] [address] [place] [address] 06/21/2022 14:03:16 06/25/2022 12:09:16 Chronic constipation 186677547 K59.09 refill Vitamin D deficiency 347 54139 E55.9 haven't taken in 1 mo, forgets to take weekly03/14 Vit D 8.4could attribute to sx Muscle pain 61869847 M79 .10 c/o upper shoulder and low back paintaking excessive tylenol and ibuprofen w/o reliefrepo rts difficulty sleeping due to mattress uncomforta blelow Vit D vs low potassium from ED visit- could attribute to sxtake 1/2 tablet of flexeril Dysuria 41317732 R30.9 c/o bladder infection drinking cranberry juiceurine dip showed trace leuks, protein, and bloodc/w OTC treatment [id number] Stuart crawford MD [facility] [address] [place] [address] 07/31/2022 16:21:26 08/01/2022 11:32:21 Herpes zoster 7122867 B02.9 07/22/22 went to ED for rash/blist ers and SOBdiagnos ed with shinglesgi adin valtrex, prednisone , diclofenac with improvemen t of sxc/o nerve pain to R shoulderPE x- hypopigmen julieta scales to R upper chest and R shoulder with mild xerosispro vided reassuranc etrial gabapentin for nerve paintrial hydrocceasari rosycosta for itchingED told pt to stop taking her home medication s with valtrex and diclofenac , can resume meds once finish valtrex Depression screening 171 764051 Z13.31 PHQ 2 [id number] Stuart crawford MD [facility] [address] [place] [address] 10/02/2022 10:04:29 10/03/2022 14:05:28 Herpes zoster 8050770 B02.9 10/02/22:Ri ght shoulder/ back extremely painful- scratching to the point of it bleedingwo rks as 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, R arm pain with pushing/pu lling patientsno relief with gabapentin , made her feel highdiff iculty sleeping due to pain and itching, decreased appetitemi ddle of chest- flares up on and off; describes pain as deep, stabbing, cannot be relieved with itchinguse s hermilo brown every 4 hours w/o reliefno improvemen t with NSAIDsPE: TTP R upper arm, difficult to differenti ate adipose tissue vs nodules, w/o erythema, hypopigmen julieta scarred papules to mid sternal area, R posterior/ lateral shoulder with open excoriatio ndiscussed post herpetic neuralgia with pt, >3 mo with sx and sx can be long termdiscus sed treatment with steroids/T CA/nerve pain medication - pt refusestri al hydroxyzin e for itchingcan also trial capsaicin cream for localized pain 07/22/22 went to ED for rash/blist ers and SOBdiagnos ed with shinglesgi adin valtrex, prednisone , diclofenac with improvemen t of sxc/o nerve pain to R shoulderPE x- hypopigmen julieta scales to R upper chest and R shoulder with mild xerosispro vided reassuranc etrial gabapentin for nerve paintrial hydrocming brown for itchingED told pt to stop taking her home medication s with valtrex and diclofenac , can resume meds once finish valtrex Depression screening 171 478667 Z13.31 PHQ 13attribut es to difficulty sleeping and R arm pain x2 mo Blood in urine 34456090 R31.9 pain with urination 2-3x monthavoid sugary drinks due to worsening sxpt has seen red specks in urine, past 2 wkspt is currently on menstrual cycle, f/u in 1 wk for urine sample Type 2 lesly betes mellitus 15312722 E11.9 refill metforminl ast a1c 03/14/22: 7.2f/u in 1 wk for repeat Edema of l ower extremity 916784050 R60.0 BP 152/90stat es she is in a lot of painwill increase from HCTZ 12.5 to 25 mg QD [id number] Stuart crawford MD [facility] [address] [place] [address] 06/14/2023 12:34:35 06/14/2023 13:08:42 Herpes zoster 3874767 B02.9 06/13/23:re fill capsaicin creamstill has pain and keloid to upper back s/p shingles rashrefer to derm 10/02/22:Ri ght shoulder/ back extremely painful- scratching to the point of it bleedingwo rks as 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, R arm pain with pushing/pu lling patientsno relief with gabapentin , made her feel highdiff iculty sleeping due to pain and itching, decreased appetitemi ddle of chest- flares up on and off; describes pain as deep, stabbing, cannot be relieved with itchinguse s hermilo brown every 4 hours w/o reliefno improvemen t with NSAIDsPE: TTP R upper arm, difficult to differenti ate adipose tissue vs nodules, w/o erythema, hypopigmen julieta scarred papules to mid sternal area, R posterior/ lateral shoulder with open excoriatio ndiscussed post herpetic neuralgia with pt, >3 mo with sx and sx can be long termdiscus sed treatment with steroids/T CA/nerve pain medication - pt refusestri al hydroxyzin e for itchingcan also trial capsaicin cream for localized pain 07/22/22 went to ED for rash/blist ers and SOBdiagnos ed with shinglesgi adin valtrex, prednisone , diclofenac with improvemen t of sxc/o nerve pain to R shoulderPE x- hypopigmen julieta scales to R upper chest and R shoulder with mild xerosispro vided reassuranc etrial gabapentin for nerve paintrial hydrocorti sone for itchingED told pt to stop taking her home medication s with valtrex and diclofenac , can resume meds once finish valtrex Dizziness 950241177 R42 x3 wksa/w nausea, stomach crampingoc curs 3-4x/week, lasts a couple seconds and goes awayno concerning sxVSSPEx- nlmost likely undernouri shed, malnutriti on- eats 200 calories maximum most daysworks days and nights, poor sleeping habitsenco uraged pt to increase her fluid and protein intake- high protein drinks/sna cks, gatorade/p oweraderec 'd she eats 2 full meals/dayf /u in 2 wks if symptoms do not improve Morbid obesity 005864718 E66.01 discussed increasing exercise and healthier food options, high protein, low fat dietwants to start mounjaro, not coveredwou ld like pt to increase protein intake and start eating at least 2 meals/day before starting appetite suppressin g medication trulicity/ ozempic is $75 for 1 month [id number] Stuart crawford MD [facility] [address] [place] [address] 11/05/2023 14:49:58 11/07/2023 11:54:58 Type 2 diabetes mellitus 76949426 E11.9 11/05/23:a1 c today 6.2wants to try ozempicf/u in 3 months for a1c 10/2022:re fill metformin last a1c 03/14/22: 7.2f/u in 1 wk for repeat History of attempted suicide 456706601 Z91.51 PHQ [address] [place] [address] [place] car 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 kill herself, police office pulled her overadmitt ed to [facility] for 3 days, no meds or psych or counseling f/udenies SI/HILOA from jobdecline s counseling or meds at this timeadvise d pt to f/u with any depression symptoms and will start pt on medication Obesity 709056887 E66.9 told her labs were abnormal while inpatientr outine labs Suprapubic pain 20038354 6 R10.30 was on doxy 03/2023 and it helpedurin e dip normal Depression screening 171 174638 Z13.31 PHQ 17 [id number] JANETH SHAH [facility] [address] [place] [address] 12/27/2023 09:41:38 01/01/2024 14:09:00 History of attempted suicide 008170868 Z91.51 12/27/23: PHQ 11denies SI or HIstates that she is not depressed and would be honest if she had thoughts of killing herselfre ports that her stress level is still the same with working 3 jobs phq 111 3:PHQ 131 [address] [place] 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 car 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 kill 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, police office pulled her overadmitt ed to [facility] for 3 days, no meds or psych or counseling f/udenies SI/HILOA from jobdecline s counseling or meds at this timeadvise d pt to f/u with any depression symptoms and will start pt on medication Type 2 lesly betes mellitus 34866637 E11.9 12/27/23: lost 6 lbs since last visiton ozempic 0.5 mg qwk, f/u in 6 wks for a1c 11/05/23:a1 c today 6.2wants to try ozempicf/u in 3 months for a1c 10/2022:re fill metformin last a1c 03/14/22: 7.2f/u in 1 wk for repeat Onychomyco sis of toenails 405664158 B35.1 to bilateral big toesreques ting podiatry referral Essential hypertension 84221212 I10 12/27/23:BP 140/92, 120/86on HCTZ 25 [id number] Stuart crawford MD [facility] [address] [place] [address] 05/27/2024 12:03:52 05/27/2024 12:29:21 Type 2 diabetes mellitus 87414457 E11.9 05/27/24: a1c 5.7last a1c 6.2c/w ozempic 2 mg 12/27/23: lost 6 lbs since last visiton ozempic 0.5 mg qwk, f/u in 6 wks for a1c 11/05/23:a1 c today 6.2wants to try ozempicf/u in 3 months for a1c 10/2022:re fill metforminl ast a1c 03/14/22: 7.2f/u in 1 wk for repeat Mixed anxi ety and depressive disorder 287935258 F41.8 05/27/24: spoke with pt on 05/22/24- All stress is stemming from work, gets bullied all day, co-workers get mad at her and make her feel uncomforta ble. She is going to talk to [employer] today about being on mental health leave and her last day at work will be next Saturday. Pt has appt with me next week and will provide work note. Pt is having suicidal thoughts, no plan. Pt's friend is aware of her suicidal thoughts. Pt's friend told her that she will drive her home from work and if pt tries to drive home she will call police. 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 kill herself, police office pulled her overadmitt ed to [facility] for 3 days, no meds or psych or counseling f/udenies SI/HILOA from jobdecline s counseling or meds at this timeadvise d pt to f/u with any depression symptoms and will start pt on medication [id number] Stuart crawford MD [facility] [address] [place] [address] 07/02/2024 09:14:32 07/02/2024 09:55:15 Urgent desire to urinate 78886006 R39.15 since stopping the abx yesterdayn o hematuria, dysuria, pelvic painurine dip nlf/u if sxs don't improve Constipation 51025367 K5 9.00 saw GI [place] ref[place] the past and is requesting more Candidiasis of vagina 72 430445 B37.31 started after taking abx for UTI 1 wk agoreports irritation , swelling, liquid discharge and itching vaginal areahas not tried OTC txsnuswab results pendingsta rt fluconazol e Health Concerns Section Related Observation LastModified by Organization Detai ls LastModified Time None Recorded Concern Status LastModified by Organization Details LastModified Time None Recorded Advance Directives Directive N: Payers Insurance Date Sequence Insurance Name Policy Number Policy Mcnamara Covered Member ID Mcnamara Member ID Guarantor Name 03/14/2022 SLIDING FEE 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 [employer] 08/08/2021 SLIDING FEE 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 [employer] 02/02/2021 SLIDING FEE 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 [employer] 05/06/2019 SLIDING FEE 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 [employer] 03/14/2022 2 *SELF PAY* Severiano Mancini 07/02/2024 1 [employer] [id number] Kikoee S Live [id number] [employer] 12/30/2020 SLIDING FEE 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 [employer] 11/02/2024 1 [facility] (MEDICAID HMO) [id number] 3 Jaree Live [id number] [employer] Notes Date Note Type Note Provider Name and Address Organization Details Recorded Time 06/14/2023 text/html ROS as noted in the HPI Pt presents for dizziness and shingles rash. States that she still has pain and keloid to old shingles rash on her upper back. Requesting dermatology referral.C/o intermittent dizziness x3 wks. Describes as feels like I'm going to pass out a/w stomach cramps that occurs after dizziness subsides. Describes cramps as almost like contractions and nausea. Dizziness does not occur when she is outside. Symptoms started after pt had 1 week of nausea, vomiting, and decreased appetite. She took zofran w/ some improvement. Dizziness occurs a couple times a week, sitting or walking, lasts a couple seconds and goes away. Pt sits down, takes a deep breath and drinks water w/ improvement of symptoms. Pt works nights and day. Unable to recall last time she had 5 hours of sleep. She drinks one green smoothie from [employer] at 12 PM and sometimes eats dinner. Drinks water all day. Denies chest pain, SOB, or palpitations. JANETH SHAH Attn: Accounting, [address] [place], [address], [facility] 06/17/2023 12:18:44 11/05/2023 text/html ROS as noted in the HPI Pt presents for f/u and depression. Reports one month ago, she was driving home from work and wanted to kill herself. States that she was speeding on a bridge to drive her car off the bridge. A copywriting intern pulled her over and took her to [facility] ED. She was admitted for 3 days. She has not followed up with psychiatry or counseling and is not on any medications. Currently on leave of absence from her job. Denies SI/HI. Expresses that she is doing better. JANETH SHAH Attn: Accounting, [address] [place], [address], [place] [facility] 11/06/2023 09:03:20 12/27/2023 text/html ROS as noted in the HPI Pt presents for 1 mo f/u after suicide attempt. Denies SI or HI. States that she is not depressed and would be honest if she had thoughts of killing herself. Reports that her stress level is still the same with working 3 jobs. JANETH SHAH Attn: Accounting, [address] [place], [address], [place] [facility] 12/28/2023 15:39:35 05/27/2024 text/html ROS as noted in the HPI Pt presents for T2DM f/u and anxiety. Reports that she has not been at work since last week and her last day is on 05/29/24. Requesting work note. States that her anxiety is through the roof and would like to start medication. Denies SI/HI. Endorses that she will be filling harassment paperwork against previous co-workers. JANETH SHAH Attn: Accounting[address] [place], [address], [facility] 05/28/2024 12:31:09 07/02/2024 text/html ROS as noted in the HPI Patient presents today for concerns for a yeast infection. She was recently treated with abx for a UTI. Patient endorses itching, swelling, liquid discharge, and irritation in vaginal area. She is also experiencing some urinary urgency, but no hematuria, dysuria, or pelvic pain. JANETH SHAH Attn: Accounting[address] [facility], [place], [address], [facility] 07/02/2024 14:29:55 OBGyn Episode No OBEpisode recorded.
--- OUTSIDE RECORDS SUMMARY | 2025-06-24 12:38 | XMS_ITS | Clinical Summary ---
Author Organization [facility] Care Team Providers Care Tool Dresser Name Role Phone Unavailable Primary Care Provider Unavailabl e Social History Tobacco Use Types Packs/Day Years Used Date Smoking Tobacco: Never Assessed Comments Unknown Sex and Gender Information Value Date Recorded Sex Assigned at Not on file Legal Sex Female 10:58 AM [employer]UM[employer] Gender Identity Not on file Sexual Orientation Not on file Plan of Treatment Health Maintenance Due Date Last Done Comments Hepatitis C Virus (HCV) Screening 1985 TdaP Immunization 1987 Pap Smear 2008 Cervical Cancer Screening (CCS) 2017 HPV/Cotest 2017 Influenza Immunization (#1) 2024 SARS-COV-2 Immunization ( season) 2024 09/14/2021, 08/24/2021 Respiratory Syncytial Virus (RSV) Immunization (Adult) (1 - 1-dose 75+ series) 2062 Hepatitis B Immunization Completed 999, 09/06/1998, 04/29/1997 DTaP/Tdap/Td Immunization Discontinued 2002, 09/13/1993, 07/10/1988, Additional history exists Meningococcal Immunization (ACWY) Aged Out No longer eligible based on patient's age to complete this topic Pneumococcal Immunization Combined Aged Out No longer eligible based on patient's age to complete this topic Rotavirus Immunization Aged Out No lo nger eligible based on patient's age to complete this topic
[2025-06-24 12:39] VITALS: BP 145/103; PULSE 92; RESP 18; TEMP 37.3; O2SAT 100
--- OUTSIDE RECORDS SUMMARY | 2025-06-24 12:39 | XMS_ITS | Patient Health Record ---
Author Organization [facility] Address [address] [place], [place] [id number] Care Team Providers Care Powdered Metal Supervisor Name Role Phone IDA COOK Unavailable [phone] Sultana Villasenor Unavailable Unavailable Allergies Allergen (clinical drug ingredient) Drug/Non Drug Allergy documented on EMR Reaction Allergy Type Onset Date Status Penicillin Unknown Drug Allergy Active Shellfish (FN) Shellfish-derived Products Unknown Drug Allergy Active sulfacetamide Sulfacetamide Unknown Drug Allergy Active Reason For Referral No Information Plan Of Treatment No Information Insurance Providers Payer Name Payer Address Payer Phone Subscriber Number Group Number Insured Name Patient Relationship to Insured Coverage Start Date Coverage End Date [facility] ([facility]) ATTN CLAIMS [address] [place] [address] [id number] Lottie Mancini Self - patient is the insured Medical (General) History Medical History History ICD Code acid reflux Blood transfusion anemia asthma - mild intermittent
--- OUTSIDE RECORDS SUMMARY | 2025-06-24 12:39 | XMS_ITS ---
Author Organization [facility] Address [address] [place], [place] [id number] Care Team Providers Care Moisture Conditioner Operator Name Role Phone ELBA IDA Unavailable [phone] Sultana Villasenor Unavailable Unavailable PETEY RODRIGUEZ Unavailable [phone] REASON FOR VISIT fungal toenails Encounters Encounter Location Date Provider Diagnosis [facility] [address] [place], [place] [id number] 01/24/2024 PETEY RODRIGUEZ Plan Of Treatment No Information Progress Notes * Edd ALEJOOB:1985 ( 40 yo F)Acc No.[id number]:01/24/2024 Progress Notes Patient: Katheryn TERE Lottie Provider: Henrique RODRIGUEZ :1985 A ge:38 Y S ex:Female Date:01/24/2024 Address:[address] [place] [address], A PT F, [place], [id number] Subjective: * Chief Complaints: * 1 . Fungal toenails. * Medical History: Objective: * Vitals: Assessment: Plan: * Treatment: * Billing Information: * Visit Code: * Procedure Codes: * Electronic signature of ARNOL RODRIGUEZ DPM on 06/24/2025 at 12:38 PM CDT Sign off status: Pending * Provider: Henrique RODRIGUEZ Date: 0 01/24/2024 Generated for Marbin sutton/Vitaly/Romeo on: 0 06/24/2025 12:38 PM CDT
--- NOTE | 2025-06-24 12:41 | ECG_ITS ---
Test Date: 2025-06-24 12:53:38 Measurements Intervals [place] Rate: 86 P: 14 [place]: 161 QRS: 21 QRSD: 77 T: 14 QT: 368 QTc: 442 Interpretive Statements SINUS RHYTHM No previous ECG available for comparison Electronically Signed On 06-25-2025 15:57:16 CDT by José Miguel Dorado M.D.
--- NOTE | 2025-06-24 12:49 | ED.URI ---
HPI - URI/Sore Throat General Chief Complaint: Upper Respiratory Infection Stated Complaint: Cough-pain in chest-shortness of breath Time Seen by Provider: 06/24/25 12:49 Focused HPI: This is a 40 year old female that presents to the ER for cold symptoms. Ongoing over the last 2 days. Reports cough, nausea, vomiting. Reports pain in her chest and back when she coughs. Reports a productive cough. Denies fevers. GENERAL: Well-appearing, well-nourished, and in no acute distress. HEAD: Normocephalic, atraumatic. CHEST: Clear to auscultation. ?No respiratory distress. HEART: Regular rate and rhythm.? NEURO: ?Alert and oriented x3. Patient screened in triage and initial orders placed.? ?Additional care and disposition to be based upon?diagnostic testing and treatment. Related Data Allergies Allergy/AdvReac Type Severity Reaction Status Date / Time Penicillins Allergy Unknown Rash Verified 06/24/25 12:36 sulfamethoxazole Allergy Unknown Swelling Verified 06/24/25 12:36 of Lip/Tongue/Throat trimethoprim Allergy Unknown Swelling Verified 06/24/25 12:36 of Lip/Tongue/Throat SHELLFISH Allergy Unknown Swelling Uncoded 06/24/25 12:36 of Lip/Tongue/Throat PMFSH Past Medical History Medical History No active medical problems Social History Social History Substance use: never Substance use type: does not use Course Vital Signs Vital signs: Vital Signs Temperature 99.1 F 06/24/25 12:39 Pulse Rate 92 06/24/25 12:39 Respiratory Rate 18 06/24/25 12:39 Blood Pressure 145/103 H 06/24/25 12:39 Pulse Oximetry 100 06/24/25 12:39 Oxygen Delivery Room Air 06/24/25 12:39 Temperature 99.1 F 06/24/25 12:39 Pulse Rate 92 06/24/25 12:39 Respiratory Rate 18 06/24/25 12:39 Blood Pressure 145/103 H 06/24/25 12:39 Pulse Oximetry 100 06/24/25 12:39 Oxygen Delivery Room Air 06/24/25 12:39 Discharge Plan Discharge Patient Language: Australian Prescriptions: No Action clindamycin HCl 300 mg capsule 300 mg PO Q6H 7 Days Qty: 28 0RF Follow-up/Referrals: UNKNOWN,DOCTOR [Primary Care Provider] -
[2025-06-24 13:14] LABS: Hematocrit 36.2 % (37.0-47.0); Hemoglobin 11.4 g/dL (12.0-15.0); Immature Granulocyte Percent A 0.2 % (0-0.5); Lymphocytes Absolute Auto 1.50 K/mm3 (0.9-3.2); Mean Corpuscular HGB Conc 31.5 g/dl (32-36); Mean Corpuscular Hemoglobin 21.0 pg (26-34); Mean Corpuscular Volume 66.8 fl (80-100); Nucleated Red Blood Cells Absolute Auto 0.000 K/mm3 (0.0-0.012); Nucleated Red Blood Cells Perc 0.0 % (0.0-0.2); Platelet Count Result 265 k/mm3 (150-375); Red Blood Count 5.42 M/mm3 (4.2-5.4); White Blood Count 4.4 K/mm3 (4.5-10.0)
[2025-06-24 13:29] LABS: INR 1.0; Partial Thromboplastin Time 25.1 Seconds (22.3-36.8); Prothrombin Time 12.9 Seconds (11.1-14.7)
[2025-06-24 13:37] LABS: Alanine Aminotransferase 13 U/L (6-35); Albumin Level 4.3 g/dL (3.5-5.1); Alkaline Phosphatase 53 U/L (38-126); Anion Gap 8 mmol/L (4-12); Aspartate Amino Transferase 23 U/L (14-36); Bilirubin,Total 0.3 mg/dL (0.2-1.3); Blood Urea Nitrogen 8 mg/dL (7-17); Calcium 8.9 mg/dL (8.4-10.2); Carbon Dioxide 27 mmol/L (22-30); Chloride 102 mmol/L (98-107); Estimated CRCL calculation 102 ml/min; Estimated Glomerular Filt Rate > 60; Glucose 103 mg/dL (65-110); Potassium 3.5 mmol/L (3.4-5.0); Sodium 137 mmol/L (137-145); Total Protein 8.1 g/dL (6.3-8.2)
[2025-06-24 13:38] LABS: Microcytosis 2+ (NORMAL); Schistocytes None Seen
[2025-06-24 13:39] LABS: Hypochromasia 1+
[2025-06-24 13:48] LABS: Troponin I < 0.012 ng/mL (0.000-0.034)
[2025-06-24 14:05] LABS: Influenza A QL RT-PCR Negative (Negative); Influenza B QL RT-PCR Negative (Negative); RSV RNA, RT-PCR Negative (Negative); SARS-CoV-2 RNA PCR Negative (Negative)
[2025-06-24 15:52] VITALS: BP 147/101; PULSE 83; RESP 20; O2SAT 100
--- NOTE | 2025-06-24 16:09 | ED.URI ---
HPI - URI/Sore Throat General Chief Complaint: Upper Respiratory Infection Stated Complaint: Cough-pain in chest-shortness of breath Time Seen by Provider: 06/24/25 12:49 Source: patient Mode of arrival: ambulatory Limitations: no limitations History of Present Illness HPI Narrative: 40-year-old female presenting cough, chest pain. To ongoing for 2 days. Chest pain is only present central chest when she coughs and it is a sharp pain. No shortness of breath. Also has some nasal congestion diarrhea. Related Data Allergies Allergy/AdvReac Type Severity Reaction Status Date / Time Penicillins Allergy Unknown Rash Verified 06/24/25 12:36 sulfamethoxazole Allergy Unknown Swelling Verified 06/24/25 12:36 of Lip/Tongue/Throat trimethoprim Allergy Unknown Swelling Verified 06/24/25 12:36 of Lip/Tongue/Throat SHELLFISH Allergy Unknown Swelling Uncoded 06/24/25 12:36 of Lip/Tongue/Throat Review of Systems Review of Systems: All systems reviewed & are unremarkable except as noted in HPI and below (HPI) FORMERLY [facility], [facility] Past Medical History Medical History No active medical problems Social History Social History Substance use: never Substance use type: does not use Exam Narrative: Constitutional: Generally well appearing, no acute distress Head: Atraumatic, no deformities. Eyes: Pupils equal, round, and reactive to light. Neck: Supple, no tracheal deviation, no JVD. ENMT: Mucous membranes moist Cardiovascular: S1, S2 auscultated. No murmurs, rubs, or gallops. No S3/S4. Normal Distal pulses. No peripheral edema. Respiratory: Lung sounds equal. No wheezes, rales, or rhonchi. Gastrointestinal: Abdomen was soft and non-tender. Non-distended. No rebound or guarding. Genitourinary: Deferred Musculoskeletal: Normal muscle tone and bulk. No obvious deformities or tenderness over extremities. Skin: No rashes. Neurological: Strength 5/5 in extremities. Cranial nerves I-XII grossly intact. Distal sensation intact. Mental Status: Awake, alert and oriented x3. Follows commands Course Vital Signs Vital signs: Vital Signs Temperature 37.3 C 06/24/25 12:39 Pulse Rate 92 07/24/25 12:39 Respiratory Rate 18 06/24/25 12:39 Blood Pressure 145/103 H 06/24/25 12:39 Pulse Oximetry 100 06/24/25 12:39 Oxygen Delivery Room Air 06/24/25 12:39 Temperature 37.3 C 06/24/25 12:39 Pulse Rate 83 06/24/25 15:52 Respiratory Rate 20 06/24/25 15:52 Blood Pressure 147/101 H 06/24/25 15:52 Pulse Oximetry 100 06/24/25 15:52 Oxygen Delivery Room Air 06/24/25 15:52 MDM - URI/Sore Throat MDM Narrative Medical decision making narrative: Patient presenting for cough, chest pain with cough and chest URI symptoms for several days now. Exam shows slight hypertension otherwise her labs vitals. Normal cardiorespiratory exam. Given the presentation consistent with bronchitis will treat her with antibiotics. She also asked for pain medications. Does not do well with NSAIDs due to her lupus. Given short prescription for tramadol. Pt feeling improved and would like to go home at this point. Return precautions were given to the patient include any new or worsening symptoms or development of and not limited to any chest pain, shortness of breath, lightheadedness, abdominal pain, fevers, chills. Patient understands and agrees. They are to follow-up with her PCP. All questions were answered. I reviewed and interpreted the patient's vital signs, pulse oximetry, cardiac catheterization technologist, history, allergies, and labs and imaging workup. Lab Data 06/24/25 13:07 06/24/25 13:07 Labs: Lab Results 06/24/25 Range/Units 13:07 WBC 4.4 L (4.5-10.0) K/mm3 RBC 5.42 H (4.2-5.4) M/mm3 Hgb 11.4 L (12.0-15.0) g/dL Hct 36.2 L (37.0-47.0) % MCV 66.8 L (80-100) fl MCH 21.0 L (26-34) pg MCHC 31.5 L (32-36) g/dl RDW 15.0 H (11.5-14.5) % Plt Count 265 (150-375) k/mm3 MPV 11.0 H (7.4-10.4) fl Immature Gran % (Auto) 0.2 (0-0.5) % Neut % (Auto) 49.0 (45.5-73.1) % Lymph % (Auto) 34.0 (18.3-44.2) % Faulk % (Auto) 8.4 (2.6-8.5) % Eos % (Auto) 7.7 H (0-4.4) % Baso % (Auto) 0.7 (0.2-1.2) % Lymph # (Auto) 1.50 (0.9-3.2) K/mm3 Faulk # (Auto) 0.4 (0.1-0.6) K/mm3 Eos # (Auto) 0.3 (0-0.3) K/mm3 Baso # (Auto) 0.0 (0.0-0.1) K/mm3 Abs Immat Gran (auto) 0.01 (0.00-0.031) K/mm3 Absolute Neuts (auto) 2.2 (1.3-6.7) K/mm3 Absolute Nucleated RBC 0.000 (0.0-0.012) K/mm3 Band Neutrophils % Not Reportable Nucleated RBC % 0.0 (0.0-0.2) % Platelet Estimate Adequate (Adequate) Hypochromasia 1+ Microcytosis 2+ (NORMAL) Schistocytes None seen PT 12.9 (11.1-14.7) Seconds INR 1.0 APTT 25.1 (22.3-36.8) Seconds Sodium 137 (137-145) mmol/L Potassium 3.5 (3.4-5.0) mmol/L Chloride 102 (98-107) mmol/L Carbon Dioxide 27 (22-30) mmol/L Anion Gap 8 (4-12) mmol/L BUN 8 (7-17) mg/dL Creatinine 0.77 (0.7-1.0) mg/dL Estim Creat Clear Calc 102 ml/min Estimated GFR > 60 (59 - ) Glucose 103 (65-110) mg/dL Calcium 8.9 (8.4-10.2) mg/dL Total Bilirubin 0.3 (0.2-1.3) mg/dL AST 23 (14-36) U/L ALT 13 (6-35) U/L Alkaline Phosphatase 53 (38-126) U/L Troponin I < 0.012 (0.000-0.034) ng/mL Total Protein 8.1 (6.3-8.2) g/dL Albumin 4.3 (3.5-5.1) g/dL Influenza A (RT-PCR) Negative (Negative) Influenza B (RT-PCR) Negative (Negative) RSV (RT-PCR) Negative (Negative) SARS-CoV-2 RNA (RT-PCR) Negative (Negative) Discharge Plan Discharge Clinical Impression: Bronchitis Patient Disposition: Home Condition: Stable Instructions: Antibiotic Form, Acute Bronchitis (ED) Patient Language: Bahamian Prescriptions: New levofloxacin 500 mg tablet 500 mg PO DAILY 5 Days Qty: 5 0RF tramadol 50 mg tablet 50 mg PO Q6H PRN (Reason: pain) Qty: 12 0RF No Action clindamycin HCl 300 mg capsule 300 mg PO Q6H 7 Days Qty: 28 0RF Follow-up/Referrals: UNKNOWN,DOCTOR [Primary Care Provider] - Time of Disposition: 16:09
[2025-06-24] MEDS: traMADol HCL (*CRX) 50 MG TABLET PO (16:27)
--- OUTSIDE RECORDS SUMMARY | 2025-06-24 16:34 | XMS_ITS | Referral Summary ---
Author Organization 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 pH may affect urinary stone formation. For example, urine pH below 6.0 may help reduce the tendency for calcium phosphate stones and pH greater than 6.0 may reduce the tendency for uric acid stone formation. Source: [facility] Current Interpretive Data was last revised on 2017 Protein, ur ql Negative Negative [facility] Glucose, ur ql Negative Negative [facility] Ketones, ur Negative Negative [facility] Bilirubin, ur Negative Negative [facility] Blood, ur Negative Negative [facility] Urobilinogen, ur <2.0 <2.0 mg/dL [facility] Nitrite, ur Negative Negative [facility] Leukocyte esterase, ur 1+(A) Negative [facility] UA reflex comment Reflex to microscopic UA will be performed. [facility] Urine 04/13/2025 2:28 PM CDT 04/13/2025 2:33 PM CDT Radha FOWLER LAB MICROBIOLOGY - GENERAL ORDERABLES Final Result [facility] [address] [facility] Department [place] [address] * (ABNORMAL) Urinalysis, microscopic only (04/13/2025 2:28 PM CDT) WBC, ur 0-5 0 - 5 /HPF RBC, ur 3-5(A) 0 - 2 /HPF [facility] Epithelial cells, squamous, ur 11-20(A) 0 - 5 /HPF [facility] Comment:Suggestive of contam ination. Consider recollection by clean catch. Bacteria, ur Trace(A) [facility] Mucous, ur Present(A) [facility] Culture Reflex Comment Reflex conditions for urine culture (WBC >10) not met. [facility] Urine 04/13/2025 2:28 PM CDT 04/13/2025 2:33 PM CDT Radha FOWLER LAB URINE ORDERABLES Final Result Performing Organization Address [facility] Co de Phone Number [address] [place] [address] * eGFR (04/13/2025 2:26 PM CDT) eGFR [...] BLOOD ORDERABLES Final Result Performing Organization Address City/[facility]/ZIP Co de Phone Number [address] [place] [address] * Differential, auto (04/13/2025 2:26 PM CDT) Pathologist [facility] Neutrophil abs 3.55 1.50 - 6.50 K/cumm Imm gran abs 0.01 0.00 - 0.10 K/cumm [facility] Lymphocyte abs 2.20 0.80 - 3.30 K/cumm [facility] Monocyte abs 0.47 0.20 - 0.80 K/cumm [facility] Eosinophil abs 0.14 0.00 - 0.50 K/cumm [facility] Basophil abs 0.03 0.00 - 0.10 K/cumm [facility] Neutrophil pct 55.4 % [facility] Comment: Interpretive Data Percent cell count reference ranges are not reported, since discordance with absolute values may lead to misinterpretation of CBC data. Current Interpretive Data was last revised on 2018. Imm gran pct 0.2 % [facility] Comment: Interpretive Data Percent cell count reference ranges are not reported, since discordance with absolute values may lead to misinterpretation of CBC data. Current Interpretive Data was last revised on 2018. Lymphocyte pct 34.4 % [facility] Comment: Interpretive Data Percent cell count reference ranges are not reported, since discordance with absolute values may lead to misinterpretation of CBC data. Current Interpretive Data was last revised on 2018. Monocyte pct 7.3 % [facility] Comment: Interpretive Data Percent cell count reference ranges are not reported, since discordance with absolute values may lead to misinterpretation of CBC data. Current Interpretive Data was last revised on 2018. Eosinophil pct 2.2 % [facility] Comment: Interpretive Data Percent cell count reference ranges are not reported, since discordance with absolute values may lead to misinterpretation of CBC data. Current Interpretive Data was last revised on 2018. Basophil pct 0.5 % [facility] Comment: Interpretive Data Percent cell count reference ranges are not reported, since discordance with absolute values may lead to misinterpretation of CBC data. Current Interpretive Data was last revised on 2018. Blood 04/13/2025 2:26 PM CDT 04/13/2025 2:33 PM CDT Radha FOWLER LAB BLOOD ORDERABLES Final Result Performing Organization Address City/[facility]/ZIP Co de Phone Number CATHERINE [address] [place] [address] * (ABNORMAL) CBC with auto differential (04/13/2025 2:26 PM CDT) [facility] WBC 6.40 3.80 - 9.90 K/cumm Hgb 11.1(L) 11.9 - 15.5 g/dL [facility] Hct 35.1(L) 35.6 - 45.5 % [facility] Plt 253 150 - 400 K/cumm [facility] MPV 11.2 9.1 - 12.3 fL [facility] RBC 5.23(H) 3.90 - 5.20 M/cumm [facility] MCV 67.1(L) 81.3 - 96.4 fL [facility] MCH 21.2(L) 27.1 - 33.3 pg [facility] MCHC 31.6(L) 32.3 - 35.7 g/dL [facility] RDW CV 15.3(H) 11.1 - 14.9 % [facility] RDW SD 36.2 35.7 - 48.1 fL [facility] NRBC abs 0.00 0.00 - 0.01 K/cumm [facility] Blood 04/13/2025 2:2 6 PM CDT 04/13/2025 2:33 PM CDT Radha FOWLER LAB BLOOD ORDERABLES Final Result Performing Organization Address City/[facility]/ZIP Co de Phone Number CATHERINE [address] [employer] [address] * Comprehensive metabolic panel (04/13/2025 2:26 PM CDT) [facility] Sodium 142 135 - 145 mmol/L Potassium, pl 3.8 3.3 - 4.9 mmol/L [facility] Chloride 103 97 - 110 mmol/L [facility] CO2 28 22 - 32 mmol/L [facility] Anion gap 11 2 - 15 mmol/L [facility] BUN 6 6 - 25 mg/dL [facility] Creatinine 0.70 0.60 - 1.10 mg/dL [facility] Glucose 96 70 - 199 mg/dL [facility] Comment: Interpretive Data Fasting glucose >/= [...] 2022. Calcium 8.9 8.5 - 10.3 mg/dL [facility] Bilirubin, total 0.2 0.1 - 1.2 mg/dL [facility] Protein, pl 8.1 6.5 - 8.5 g/dL [facility] Albumin 4.2 3.5 - 5.0 g/dL [facility] Alk phos 54 40 - 130 Units/L [facility] ALT 9 7 - 45 Units/L [facility] AST 18 10 - 45 Units/L [facility] Blood 04/13/2025 2:26 PM CDT 04/13/2025 2:33 PM CDT Radha F[facility] LAB BLOOD ORDERABLES Final Result [facility] [address] [facility] Department [place] [address] from Last 3 Months Insurance [employer] GENERIC Care Teams Marketing Officer Relationship Specialty Start Date End Date Dona Kirby MD PCP - General Family Medicine 05/27/21
--- OUTSIDE RECORDS SUMMARY | 2025-06-24 16:34 | XMS_ITS | Clinical Summary ---
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 pH may affect urinary stone formation. For example, urine pH below 6.0 may help reduce the tendency for calcium phosphate stones and pH greater than 6.0 may reduce the tendency for uric acid stone formation. Source: [facility] [employer] Current Interpretive Data was last revised on 2017 Protein, ur ql Negative Negative [facility] Glucose, ur ql Negative Negative [facility] Ketones, ur Negative Negative [facility] Bilirubin, ur Negative Negative [facility] Blood, ur Negative Negative [facility] Urobilinogen, ur <2.0 <2.0 mg/dL [facility] Nitrite, ur Negative Negative [facility] Leukocyte esterase, ur 1+(A) Negative [facility] UA reflex comment Reflex to microscopic UA will be performed. [facility] Urine 04/13/2025 2:28 PM CDT 04/13/2025 2:33 PM CDT Radha FOWLER [facility] MICROBIOLOGY - GENERAL ORDERABLES Final Result Performing Organization Address [facility] de Phone Number [address] [address] * (ABNORMAL) Urinalysis, microscopic only (04/13/2025 2:28 PM CDT) WBC, ur 0-5 0 - 5 /HPF RBC, ur 3-5(A) 0 - 2 /HPF [facility] Epithelial cells, squamous, ur 11-20(A) 0 - 5 /HPF [facility] Comment:Suggestive of contam ination. Consider recollection by clean catch. Bacteria, ur Trace(A) [facility] Mucous, ur Present(A) [facility] Culture Reflex Comment Reflex conditions for urine culture (WBC >10) not met. [facility] Urine 04/13/2025 2:28 PM CDT 04/13/2025 2:33 PM CDT Radha FOWLER [facility] URINE ORDERABLES Final Result Performing Organization Address [facility] de Phone Number [address] [address] * eGFR (04/13/2025 2:26 PM CDT) eGFR [...] Radha FOWLER LAB BLOOD ORDERABLES Final Result [facility] [address] [facility] Department [place] [address] * Differential, auto (04/13/2025 2:26 PM CDT) Neutrophil abs 3.55 1.50 - 6.50 K/cumm Imm gran abs 0.01 0.00 - 0.10 K/cumm [facility] Lymphocyte abs 2.20 0.80 - 3.30 K/cumm [facility] Monocyte abs 0.47 0.20 - 0.80 K/cumm [facility] Eosinophil abs 0.14 0.00 - 0.50 K/cumm [facility] Basophil abs 0.03 0.00 - 0.10 K/cumm [facility] Neutrophil pct 55.4 % [facility] Comment: Interpretive Data Percent cell count reference ranges are not reported, since discordance with absolute values may lead to misinterpretation of CBC data. Current Interpretive Data was last revised on 2018. Imm gran pct 0.2 % [facility] Comment: Interpretive Data Percent cell count reference ranges are not reported, since discordance with absolute values may lead to misinterpretation of CBC data. Current Interpretive Data was last revised on 2018. Lymphocyte pct 34.4 % [facility] Comment: Interpretive Data Percent cell count reference ranges are not reported, since discordance with absolute values may lead to misinterpretation of CBC data. Current Interpretive Data was last revised on 2018. Monocyte pct 7.3 % [facility] Comment: Interpretive Data Percent cell count reference ranges are not reported, since discordance with absolute values may lead to misinterpretation of CBC data. Current Interpretive Data was last revised on 2018. Eosinophil pct 2.2 % [facility] Comment: Interpretive Data Percent cell count reference ranges are not reported, since discordance with absolute values may lead to misinterpretation of CBC data. Current Interpretive Data was last revised on 2018. Basophil pct 0.5 % [facility] Comment: Interpretive Data Percent cell count reference ranges are not reported, since discordance with absolute values may lead to misinterpretation of CBC data. Current Interpretive Data was last revised on 2018. Blood 04/13/2025 2:26 PM CDT 04/13/2025 2:33 PM CDT Radha FOWLER LAB BLOOD ORDERABLES Final Result [facility] [address] [facility] Department [place] [address] * (ABNORMAL) CBC with auto differential (04/13/2025 2:26 PM CDT) WBC 6.40 3.80 - 9.90 K/cumm Hgb 11.1(L) 11.9 - 15.5 g/dL [facility] Hct 35.1(L) 35.6 - 45.5 % [facility] Plt 253 150 - 400 K/cumm [facility] MPV 11.2 9.1 - 12.3 fL [facility] RBC 5.23(H) 3.90 - 5.20 M/cumm [facility] MCV 67.1(L) 81.3 - 96.4 fL [facility] MCH 21.2(L) 27.1 - 33.3 pg [facility] MCHC 31.6(L) 32.3 - 35.7 g/dL [facility] RDW CV 15.3(H) 11.1 - 14.9 % [facility] RDW SD 36.2 35.7 - 48.1 fL [facility] NRBC abs 0.00 0.00 - 0.01 K/cumm [facility] Blood 04/13/2025 2:26 PM CDT 04/13/2025 2:33 PM CDT Radha FOWLER LAB BLOOD ORDERABLES Final Result [facility] [address] [facility] Department [place] [address] * Comprehensive metabolic panel (04/13/2025 2:26 PM CDT) Pathologist [facility] Sodium 142 135 - 145 mmol/L Potassium, pl 3.8 3.3 - 4.9 mmol/L [facility] Chloride 103 97 - 110 mmol/L [facility] CO2 28 22 - 32 mmol/L [facility] Anion gap 11 2 - 15 mmol/L [facility] BUN 6 6 - 25 mg/dL [facility] Creatinine 0.70 0.60 - 1.10 mg/dL [facility] Glucose 96 70 - 199 mg/dL [facility] Comment: Interpretive Data Fasting glucose >/= [...] 2022. Calcium 8.9 8.5 - 10.3 mg/dL [facility] Bilirubin, total 0.2 0.1 - 1.2 mg/dL [facility] Protein, pl 8.1 6.5 - 8.5 g/dL [facility] Albumin 4.2 3.5 - 5.0 g/dL [facility] Alk phos 54 40 - 130 Units/L [facility] ALT 9 7 - 45 Units/L [facility] AST 18 10 - 45 Units/L [facility] Blood 04/13/2025 2:2 6 PM CDT 04/13/2025 2:33 PM CDT Radha FOWLER LAB BLOOD ORDERABLES Final Result [facility] [address] [facility] Department [place] [address] from Last 3 Months Insurance [employer] Care Teams Laboratory Miller Relationship Specialty Start Date End Date Dona Kirby MD PCP - General Family Medicine 05/27/21
--- OUTSIDE RECORDS SUMMARY | 2025-06-24 16:34 | XMS_ITS | Clinical Summary ---
Author Organization [facility] Address [address] [place] [address] Care Team Providers Care Airplane Pilot Supervisor Name Role Phone Pcp, Idalia Glover Primary Care-Im/Cristian-Luc Frazier Primary Care Provider Unavailable Source Comments [facility],non-owned Affiliates and Associated Physician Practices is amultiple site organization consisting of ambulatory clinics and hospital sitesin [place], [place], [place] and [place]. This disclosure is being madepursuant to the Care Everywhere program and may not contain all information available regarding this patient. 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) Comment: Based on the anti-HCV (FLORENTIN) screen, [...] Index <0.02 IV 03/18/2023 6:36 PM CDT [facility] ([facility]) Comment: Performed by [employer], [address] [place] [address] [email or web address], Vito Goodrich MD, PHD, Lab. Director Blood BLOOD SPECIMEN / Unknown Venipuncture / Unknown 03/16/2023 5:25 PM CDT 03/16/2023 5:25 PM CDT [facility] CHE[facility] ERAB[facility] Final Result [facility] ([facility]) [phone] * HIV 1 & HIV 2 ANTIBODY (IN HOUSE) (03/16/2023 5:25 PM CDT) HIV1/2 Ab + P24 Ag NON-REACTI VE/NEGATIV E NON-REACTI VE/NEGATIV E 03/17/2023 2:[address] [facility] Blood BLOOD SPECIMEN / Unknown Venipuncture / Unknown 03/16/2023 5:25 PM CDT 03/16/2023 5:25 PM CDT Radha Hightower [facility] CHEMISTRY [facility]D ERABLES Final Result [facility] [address] from Last 3 Months or Most Recently Relevant to Health Maintenance Insurance [facility] [employer] GENERIC * Guarantor: [id number] G M[facility] Account Type Relation to Patient Date of Phone Billing Address [employer] [id number] [employer] Care Teams Airplane Pilot Supervisor Relationship Specialty Start Date End Date PcpIdalia Primary Care-Im/Cristian-Luc Frazier PCP - General 03/02/24
--- OUTSIDE RECORDS SUMMARY | 2025-06-24 16:34 | XMS_ITS | Clinical Summary ---
Author Organization [facility] Address [address] [place] [id number] Care Team Providers Care Hockey Player Name Role Phone Sena Mckenzie Partik THORPE Primary Care Provider Allergies Active Allergy [...] patient's age to complete this topic Insurance [facility] [employer] Care Teams Hockey Player Relationship Specialty Start Date End Date Sena Mckenzie FNP PCP - General NURSE PRACTITIONER 10/01/18
[2025-06-24 16:40] VITALS: BP 162/95; PULSE 88; RESP 20; O2SAT 98
== END 2025-06-24 16:56 | disposition home or self-care (01) ==
LOC: ANHED 16:32
PROVIDERS: Physician Assistant; Emergency Provider Emergency Medicine
DX: J40 Bronchitis, not specified as acute or chronic (principal); Z20.822 Contact with and (suspected) exposure to COVID-19
CPT/HCPCS: 36415; 71046; 80053; 84484; 85025; 85610; 85730; 87637; 93005; 99284; A9270